=== PATIENT | female | born 1995 | race Caucasian/White ===

== ENCOUNTER 2020-10-24 18:04 | Emergency (ER) | payer MEDICAID, SELFPAY ==
[2020-10-24 18:24] VITALS: BP 118/75; PULSE 91; RESP 18; TEMP 36.9; O2SAT 98; BMI 36.6
--- NOTE | 2020-10-24 19:44 | W.ED.PREGNAN ---
HPI - General: Chief complaint: Vaginal Bleeding Stated complaint: 6 WKS PREG, BLEEDING Time Seen by Provider: 10/24/20 19:44 History of Present Illness: HPI Narrative: Patient is a 25-year-old female that is 6 weeks and comes to the ED with vaginal bleeding. This is patient's first . She says bleeding just started couple hours ago and it is very light. No clots no clots or tissue visible with bloody discharge. She says the bleeding has slowed down. Patient did have sexual intercourse within the last 24 hours. She had some mild cramping earlier this morning but that has since resolved. Denies any fever, chills, abdominal pain, chest pain, shortness of breath, bladder or bowel symptoms. She endorses having some nausea since she found out she was and it mostly occurs in the mornings. Associated symptoms: Reports nausea (Morning nausea ); Deny abdominal pain, dysuria, headache(s) or vomiting Review of Systems Const: Denies: fever(s), chills or fatigue Eyes: Denies: change in vision or eye discomfort ENMT: Denies: throat pain, odynophagia, nasal discharge or nasal congestion Card: Denies: chest pain, palpitations, edema, swelling of feet/ankles, dyspnea on exertion or orthopnea Resp: Denies: dyspnea, productive cough or non-productive cough GI: Reports: nausea (Morning nausea ); Denies: abdominal pain, vomiting, diarrhea, constipation or hematochezia : Reports: vaginal bleeding; Denies: flank pain, dysuria or hematuria Musc: Denies: neck pain, back pain or extremity swelling Skin/Breast: Denies: rash or new lesions Neuro: Denies: headache(s), numbness in extremities or weakness in extremities PFS ED PFSH: Social History Smoking and tobacco status: never smoked Second hand smoke exposure: No Smoking risk assessment/counseling performed?: No Physical Exam Const: COMMON NORMALS: no acute distress, patient oriented x3, healthy appearing and alert GENERAL APPEARANCE: cooperative and comfortable NUTRITIONAL APPEARANCE: overweight HENMT: COMMON NORMALS: normocephalic HEAD & SCALP: normocephalic MOUTH: Normal oral and palatal mucosa present THROAT: posterior oropharynx normal and uvula midline Eye: COMMON NORMALS: Equal, round and reactive pupils present PUPIL: Yes Equal, round and reactive pupils present Neck/C-Spine: COMMON NORMALS: supple GENERAL: Yes normal visual inspection Resp: COMMON NORMALS: normal respiratory effort, No retractions, No use of accessory muscles and clear to auscultation bilaterally EFFORT & INSPECTION: Yes able to speak in complete sentences, No tachypneic and No respiratory distress AUSCULTATION: clear to auscultation bilaterally Cardio: COMMON NORMALS: regular rate, regular rhythm, S1 normal heart sound present, S2 normal heart sound present, No gallops present (Cardio), No clicks present (Cardio), No murmurs present (Cardio) and Peripheral pulses 2+ throughout RATE: regular rate RHYTHM: regular rhythm HEART SOUNDS: S1 normal heart sound present and S2 normal heart sound present PERIPHERAL PULSES: Peripheral pulses 2+ throughout GI: COMMON NORMALS: Normal to inspection, nondistended, normoactive bowel sounds present, Soft to palpation, non-tender and no masses PALPATION: Yes Soft to palpation : COMMON NORMALS: Yes no CVA tenderness BLADDER/KIDNEY EXAM: Yes no CVA tenderness Back/Pelvis: COMMON NORMALS: no CVA tenderness Extremity: COMMON NORMALS: normal to inspection and no pedal edema Neuro: COMMON NORMALS: patient oriented x3 and moves all extremities SENSORIUM/ORIENTATION: Yes alert Skin: GENERAL SKIN EXAM: dry skin Course Vital Signs: Vital signs: Vital Signs Temperature 98.4 F 10/24/20 18:24 Pulse Rate 77 10/24/20 23:34 Respiratory Rate 18 10/24/20 23:34 Blood Pressure 119/74 10/24/20 23:34 Pulse Oximetry 99 10/24/20 23:34 MDM - OB/Uterine Contractions MDM Narrative: Medical decision making narrative: Patient is a 25-year-old female that is approximately 6 weeks comes to the ED with vaginal bleeding. She says bleeding has been light and has subsided. This is her first . Patient appears in no acute distress or pain and physical exam is unremarkable. CBC, CMP were unremarkable. UA shows some signs of a UTI. hCG quant 25,909. Rh type negative. Ultrasound showed a gestational sac with pole and heartbeat around 120-130 bpm. Cervix was closed. Patient has appointment with her OB doctor around mid October. She was discharged with a prescription for nitrofurantoin and told to follow-up in her next scheduled appointment with OB. Return to ED precautions given. Patient understood agree with plan. Lab Data: Attestation: I reviewed the patient's lab results. Labs: Lab Results 10/24/20 10/24/20 10/24/20 Range/Units 20:35 20:35 20:42 WBC 11.1 H (4.0-10.0) 10^3/ uL RBC 4.87 (4.1-5.3) 10^6/u L Hgb 12.6 (11.5-15.3) g/dL Hct 39.0 (37.0-47.0) % MCV 80.1 L (81-99) fL MCH 25.9 L (28.0-34.0) pg MCHC 32.3 (30.0-36.0) g/dL RDW 14.1 (12.1-15.1) % Plt Count 264 (130-400) 10^3/c mm MPV 10.4 (7.4-10.4) fL Neut % (Auto) 67.5 % Lymph % (Auto) 26.0 % [place] % (Auto) 5.1 % Eos % (Auto) 0.6 % Baso % (Auto) 0.4 % Neut # (Auto) 7.48 (1.8-7.7) 10^3/u L Lymph # (Auto) 2.9 (0.8-4.8) 10^3/u L [place] # (Auto) 0.6 (0.2-0.9) 10^3/u L Eos # (Auto) 0.1 (0.0-0.8) 10^3/u L Baso # (Auto) 0.0 (0.0-0.1) 10^3/u L Nucleated RBC % (a uto) 0 % Nucleated RBCs # 0.0 /100WBC Sodium 138 (136-145) mmol/L Potassium 3.9 (3.5-5.1) mmol/L Chloride 102 (98-107) mmol/L Carbon Dioxide 24 (22-29) mmol/L Anion Gap 15.9 (5-19) BUN 10 (6-20) mg/dL Creatinine 0.5 (0.5-0.9) mg/dL GFR Calculation Not Reportable Glucose 86 (65-115) mg/dL Calculated Osmolal ity Not Reportable Calcium 9.3 (8.5-10.5) mg/dL Total Bilirubin 0.2 (0.15-1.2) mg/dL AST 13 (0-32) U/L ALT 11 (0-33) U/L Alkaline Phosphata se 41 (35-105) IU/L Total Protein 6.1 L (6.6-8.7) g/dL Albumin 4.0 (3.5-5.2) g/dL Globulin 2.1 (1.3-4.6) g/dL Ser , [place] [address].00 mIU/mL Urine Color (Yellow) Urine Appearance (CLEAR) Urine pH (5-7) Ur Specific Gravit y (1.005-1.030) Urine Protein (Negative) Urine Glucose (UA) (Normal) Urine Ketones (Negative) Urine Blood (Negative) Urine Nitrate (Negative) Urine Bilirubin (Negative) Urine Urobilinogen (Negative) mg/dL Ur Leukocyte Tonie ase (Negative) Urine RBC (0-2) /hpf Urine WBC (0-5) /hpf Ur Squamous Epith Cells (0-5) /hpf Amorphous Sediment Urine Bacteria (NONE) /hpf Urine Mucus /hpf Blood Type A Negative Rho(D) Type Negative Antibody Screen Negative 10/24/20 Range/Units 21:03 WBC (4.0-10.0) 10^3/ uL RBC (4.1-5.3) 10^6/u L Hgb (11.5-15.3) g/dL Hct (37.0-47.0) % MCV (81-99) fL MCH (28.0-34.0) pg MCHC (30.0-36.0) g/dL RDW (12.1-15.1) % Plt Count (130-400) 10^3/c mm MPV (7.4-10.4) fL Neut % (Auto) % Lymph % (Auto) % [place] % (Auto) % Eos % (Auto) % Baso % (Auto) % Neut # (Auto) (1.8-7.7) 10^3/u L Lymph # (Auto) (0.8-4.8) 10^3/u L [place] # (Auto) (0.2-0.9) 10^3/u L Eos # (Auto) (0.0-0.8) 10^3/u L Baso # (Auto) (0.0-0.1) 10^3/u L Nucleated RBC % (a uto) % Nucleated RBCs # /100WBC Sodium (136-145) mmol/L Potassium (3.5-5.1) mmol/L Chloride (98-107) mmol/L Carbon Dioxide (22-29) mmol/L Anion Gap (5-19) BUN (6-20) mg/dL Creatinine (0.5-0.9) mg/dL GFR Calculation Glucose (65-115) mg/dL Calculated Osmolal ity Calcium (8.5-10.5) mg/dL Total Bilirubin (0.15-1.2) mg/dL AST (0-32) U/L ALT (0-33) U/L Alkaline Phosphata se (35-105) IU/L Total Protein (6.6-8.7) g/dL Albumin (3.5-5.2) g/dL Globulin (1.3-4.6) g/dL Ser , [place] i-Qnt mIU/mL Urine Color Yellow (Yellow) Urine Appearance Hazy A (CLEAR) Urine pH 5.0 (5-7) Ur Specific Gravit y 1.025 (1.005-1.030) Urine Protein 1+ H (Negative) Urine Glucose (UA) Norm (Normal) Urine Ketones 2+ H (Negative) Urine Blood 3+ H (Negative) Urine Nitrate Negative (Negative) Urine Bilirubin Neg (Negative) Urine Urobilinogen 1 H (Negative) mg/dL Ur Leukocyte Tonie ase Trace H (Negative) Urine RBC 0-4 H (0-2) /hpf Urine WBC 10-15 H (0-5) /hpf Ur Squamous Epith Cells 5-10 H (0-5) /hpf Amorphous Sediment Not Reportable Urine Bacteria 2+ H (NONE) /hpf Urine Mucus 2+ /hpf Blood Type Rho(D) Type Antibody Screen Imaging Data^: US OB: Attestation: I personally reviewed and interpreted this imaging study as follows: Radiologist's impression: OB ultrasound prelim report?gestational sac and pole seen in uterus. Heart rate around 120 to 130 bpm. Cervix closed. Discharge Plan Discharge Patient Disposition: Home Clinical Impression: Vaginal bleeding before 22 weeks gestation UTI (urinary tract infection) Qualifiers: Urinary tract infection type: site unspecified Hematuria presence: with hematuria Qualified Code(s): N39.0 - Urinary tract infection, site not specified Condition: Stable Prescriptions: New nitrofurantoin monohyd/m-cryst 100 mg capsule 100 mg PO BID 7 Days Qty: 14 RF: 0 No Action sertraline [Zoloft] 100 mg tablet 100 mg PO DAILY Qty: 30 RF: 2 1 tab PO DAILY RF: 0 multivitamin 1 tab PO DAILY RF: 0 Discharge Orders: Discharge Order (Routine); Ordered 10/24/20 Ordered By: Barney Vidal Referrals: Larry Mtz MD [Primary Care Provider] - Discharge Diet: Regular Discharge Activity: Increase activity as tolerated Patient Instructions: (ED), Urinary Tract Infection in Women (ED) Activity Restrictions/Additional Instructions: Follow-up with OB doctor at next appointment. Take medications as prescribed. Return to the ER or your medical provider if condition worsens. Please read and understand discharge instructions. If any questions, please ask. Coding Level of Care Code ED Airline Managerial Supervisor for Chg Fwd Exam Comprehensive
[2020-10-24 20:46] LABS: Basophils % 0.4 %; Eosinophils # 0.1 10^3/uL (0.0-0.8); Eosinophils % 0.6 %; Hemoglobin 12.6 g/dL (11.5-15.3); Lymphocytes # 2.9 10^3/uL (0.8-4.8); Mean Corpuscular HGB Conc 32.3 g/dL (30.0-36.0); Mean Corpuscular Hemoglobin 25.9 pg (28.0-34.0); Mean Corpuscular Volume 80.1 fL (81-99); Mean Platelet Volume 10.4 fL (7.4-10.4); Monocytes # 0.6 10^3/uL (0.2-0.9); Monocytes % 5.1 %; Neutrophils # 7.48 10^3/uL (1.8-7.7); Neutrophils % 67.5 %; Nucleated Red Blood Cells % 0 %; Platelet Count 264 10^3/cmm (130-400); Red Blood Count 4.87 10^6/uL (4.1-5.3); Red Cell Distribution Width 14.1 % (12.1-15.1); White Blood Count 11.1 10^3/uL (4.0-10.0)
[2020-10-24 21:04] VITALS: BP 117/74; PULSE 78; RESP 18; O2SAT 99
[2020-10-24 21:22] LABS: Alanine Aminotransferase 11 U/L (0-33); Alkaline Phosphatase 41 IU/L (35-105); Aspartate Amino Transferase 13 U/L (0-32); Blood Urea Nitrogen 10 mg/dL (6-20); Calcium 9.3 mg/dL (8.5-10.5); Carbon Dioxide 24 mmol/L (22-29); Chloride 102 mmol/L (98-107); Globulin 2.1 g/dL (1.3-4.6); Glucose 86 mg/dL (65-115); Sodium 138 mmol/L (136-145); Total Bilirubin 0.2 mg/dL (0.15-1.2)
[2020-10-24 21:26] LABS: Anion Gap 15.9 (5-19); Potassium 3.9 mmol/L (3.5-5.1); Total Protein 6.1 g/dL (6.6-8.7)
--- NOTE | 2020-10-24 21:28 | US_ITS ---
WS: [id number] EARLY OBSTETRICAL ULTRASOUND (<14 WEEKS). HISTORY: 6 weeks preg with bleeding COMPARISON: None available. Transabdominal and transvaginal imaging is performed. Technically this study is very limited. There i s an intrauterine gestational sac which appears low lying on the transabdominal imaging but the uteru s is slightly retroverted on transvaginal imaging. Cervix has not been well evaluated for blood produ cts. Gestational sac appears intact. There is a normal yolk sac. Heart rate is identified at 122 bpm. [place]-rump length of 0.4 cm corresponds to gestation of 6 weeks and 1 day. No fluid in the cul-de-sac. RIGHT ovary measures 2.1 x 3.6 x 2.5 cm. Normal vascularity. LEFT ovary measures 2.8 x 3.0 x 1.9 cm. Several small follicles in the ovary. The ovary is surrounded by small amount of fluid. Normal vascularity. US/US OB lmt with transvaginal IMPRESSION: 1. Single intrauterine gestation of 6 weeks 1 day with an EDC of 06/18/2021. 2. Limited evaluation of the gestation in the cervix. 3. Limited evaluation of each ovary.
[2020-10-24 21:35] LABS: Blood Urine 3+ (Negative); Glucose Urine UA Norm (Normal); Ketones Urine 2+ (Negative); Nitrate Urine Negative (Negative); Protein Urine 1+ (Negative); Specific Gravity, Urine 1.025 (1.005-1.030); Urine Appearance Hazy (CLEAR); Urine Color Yellow (Yellow)
[2020-10-24 21:36] LABS: Add Urine Culture? No; Bacteria Urine 2+ /hpf; Bilirubin Urine Neg (Negative); Leukocyte Esterase Urine Trace (Negative); Mucus Urine 2+ /hpf; RBC Urine 0-4 /hpf (0-2); Urobilinogen Urine 1 mg/dL (Negative)
[2020-10-24 22:27] VITALS: BP 106/57; PULSE 70; RESP 18; O2SAT 97
[2020-10-24 23:34] VITALS: BP 119/74; PULSE 77; RESP 18; O2SAT 99
== END 2020-10-24 23:36 | disposition home or self-care (01) ==
PROVIDERS: Emergency Provider Physician Assistant; PCP Family Medicine
DX: O20.9 Hemorrhage in early pregnancy, unspecified (principal); Z3A.01 Less than 8 weeks gestation of pregnancy; O23.41 Unspecified infection of urinary tract in pregnancy, first trimester
CPT/HCPCS: 12345; 76815; 76817; 80053; 81001; 84702; 85025; 86850; 86900; 99282; 99283

== ENCOUNTER 2020-11-09 07:40 | Emergency (ER) | payer MEDICAID, SELFPAY ==
[2020-11-09 07:43] VITALS: BP 131/72; PULSE 87; RESP 18; TEMP 36.3; O2SAT 100; BMI 36.0
--- NOTE | 2020-11-09 07:48 | W.ED.NAVMDI ---
HPI - Nausea/Vomiting/Diarrhea General: Chief complaint: Nausea/Vomiting/Diarrhea Stated complaint: 8 WKS PREG, UNABLE TO KEEP ANYTHING DOWN X4 DAYS Time Seen by Provider: 11/09/20 07:44 Source: patient Mode of arrival: ambulatory Limitations: no limitations History of Present Illness: HPI Narrative: 25-year-old female who is roughly 8 weeks with her first child. She states she has had nausea and vomiting throughout the but has had severe vomiting over the last 3 days. She states she has tried Phenergan with no improvement. She denies any pain and has no vaginal bleeding. Denies any worsening or improving factors. Associated nausea: Yes Associated symtoms: Reports nausea; Denies chest pain, dysuria or headache(s) Review of Systems Const: Denies: fever(s), chills, body aches or change in appetite Eyes: Denies: blurry vision or eye discomfort ENMT: Denies: throat pain or dental pain Card: Denies: chest pain Resp: Denies: dyspnea GI: Reports: nausea and vomiting; Denies: abdominal pain or diarrhea : Denies: dysuria Musc: Denies: neck pain or back pain Skin/Breast: Denies: rash Neuro: Denies: headache(s) Psych: Denies: depression [place]/Lymph: Denies: easy bruising All/Imm: Denies: urticaria PFSH ED PFSH: Social History Smoking and tobacco status: never smoked Second hand smoke exposure: No Smoking risk assessment/counseling performed?: No Physical Exam Const: COMMON NORMALS: no acute distress, patient oriented x3 and healthy appearing HENMT: COMMON NORMALS: normocephalic and atraumatic HEAD & SCALP: normocephalic and atraumatic Eye: COMMON NORMALS: Equal, round and reactive pupils present and EOMs intact bilaterally PUPIL: Yes Equal, round and reactive pupils present Neck/C-Spine: COMMON NORMALS: full ROM and supple Chest: COMMONS NORMALS: normal inspection of the chest and normal palpation of entire chest wall Resp: COMMON NORMALS: normal respiratory effort, No retractions, No use of accessory muscles and clear to auscultation bilaterally AUSCULTATION: clear to auscultation bilaterally Cardio: COMMON NORMALS: regular rate, regular rhythm and No murmurs present (Cardio) RATE: regular rate RHYTHM: regular rhythm GI: COMMON NORMALS: Normal to inspection, nondistended, normoactive bowel sounds present, Soft to palpation, non-tender and no masses PALPATION: Yes Soft to palpation Extremity: COMMON NORMALS: normal to inspection and full ROM Neuro: COMMON NORMALS: patient oriented x3, moves all extremities and no focal motor deficits Psych: COMMON NORMALS: mental status grossly normal, Normal thought process present and cooperative THOUGHT PROCESS: Normal thought process present Skin: COMMON NORMALS: no rashes or lesions noted and no wounds GENERAL SKIN EXAM: no rashes or lesions noted Course Vital Signs: Vital signs: Vital Signs Temperature 97.3 F L 11/09/20 07:43 Pulse Rate 87 11/09/20 07:43 Respiratory Rate 18 11/09/20 07:43 Blood Pressure 131/72 11/09/20 07:43 Pulse Oximetry 95 11/09/20 08:06 MDM - Nausea/Vomiting/Diarrhea MDM Narrative: Medical decision making narrative: Patient presents here with hyperemesis gravidarum and also has a urinary tract infection. She feels much improved after Reglan. Will prescribe her Reglan for home along with Keflex. Patient has no signs of sepsis and abdominal exam is benign. She is to follow-up with her OB and return if worsening. Lab Data: Labs: Lab Results 11/09/20 11/09/20 11/09/20 Range/Units 07:50 07:50 08:15 WBC 10.7 H (4.0-10.0) 10^3/ uL RBC 5.28 (4.1-5.3) 10^6/u L Hgb 13.6 (11.5-15.3) g/dL Hct 42.2 (37.0-47.0) % MCV 79.9 L (81-99) fL MCH 25.8 L (28.0-34.0) pg MCHC 32.2 (30.0-36.0) g/dL RDW 13.4 (12.1-15.1) % Plt Count 281 (130-400) 10^3/c mm MPV 10.5 H (7.4-10.4) fL Neut % (Auto) 79.5 % Lymph % (Auto) 14.7 % [place] % (Auto) 4.0 % Eos % (Auto) 1.0 % Baso % (Auto) 0.4 % Neut # (Auto) 8.51 H (1.8-7.7) 10^3/u L Lymph # (Auto) 1.6 (0.8-4.8) 10^3/u L [place] # (Auto) 0.4 (0.2-0.9) 10^3/u L Eos # (Auto) 0.1 (0.0-0.8) 10^3/u L Baso # (Auto) 0.0 (0.0-0.1) 10^3/u L Nucleated RBC % (a uto) 0 % Nucleated RBCs # 0.0 /100WBC Sodium 136 (136-145) mmol/L Potassium 3.7 (3.5-5.1) mmol/L Chloride 101 (98-107) mmol/L Carbon Dioxide 23 (22-29) mmol/L Anion Gap 15.7 (5-19) BUN 10 (6-20) mg/dL Creatinine 0.6 (0.5-0.9) mg/dL GFR Calculation 123.9 (90-130) mL/min Glucose 112 (65-115) mg/dL Calculated Osmolal ity 282 L (285-295) mOsm/k g Calcium 9.2 (8.5-10.5) mg/dL Total Bilirubin 0.4 (0.15-1.2) mg/dL AST 12 (0-32) U/L ALT 9 (0-33) U/L Alkaline Phosphata se 45 (35-105) IU/L Total Protein 6.7 (6.6-8.7) g/dL Albumin 4.0 (3.5-5.2) g/dL Globulin 2.7 (1.3-4.6) g/dL Lipase 24 (13-60) U/L Urine Color Yellow (Yellow) Urine Appearance Sl hazy (CLEAR) Urine pH 5.0 (5-7) Ur Specific Gravit y 1.030 (1.005-1.030) Urine Protein Neg (Negative) Urine Glucose (UA) Norm (Normal) Urine Ketones 2+ H (Negative) Urine Blood Neg (Negative) Urine Nitrate Negative (Negative) Urine Bilirubin 1+ H (Negative) Urine Urobilinogen 1 H (Negative) mg/dL Ur Leukocyte Tonie ase 2+ H (Negative) Urine RBC 0-4 H (0-2) /hpf Urine WBC 40-55 H (0-5) /hpf Ur Squamous Epith Cells 40-55 H (0-5) /hpf Amorphous Sediment Not Reportable Urine Bacteria 2+ H (NONE) /hpf Urine Mucus 3+ /hpf Discharge Plan Discharge Patient Disposition: Home Clinical Impression: Hyperemesis gravidarum, Acute cystitis Condition: Stable Prescriptions: New Reglan 10 mg tablet 10 mg PO Q6H PRN (Reason: nausea and vomiting) Qty: 20 RF: 0 Keflex 500 mg capsule 500 mg PO Q6H 7 Days Qty: 28 RF: 0 No Action sertraline [Zoloft] 100 mg tablet 100 mg PO DAILY Qty: 30 RF: 2 1 tab PO DAILY RF: 0 multivitamin 1 tab PO DAILY RF: 0 Discharge Orders: Discharge ED (Routine); Ordered 11/09/20 Ordered By: Vanessa Jackson Referrals: Larry Mtz MD [Primary Care Provider] - 1-3 days Discharge Diet: Advance as tolerated Discharge Activity: Resume usual activity Patient Instructions: Hyperemesis Gravidarum (ED) Coding Level of Care Code ED Loading Machine Operator Helper for Chg Fwd Exam Comprehensive
[2020-11-09 08:06] VITALS: O2SAT 95
[2020-11-09] MEDS: sodium chloride 0.9% 1,000 ML 999 ML IV ×2 (08:12→09:10)
[2020-11-09] MEDS: metoclopramide 5 mg/mL SDV 2 mL 10 MG IVP (08:12)
[2020-11-09] MEDS: diphenhydrAMINE 50 mg/mL SDV 1mL IVP (08:12)
[2020-11-09 08:15] LABS: Basophils % 0.4 %; Eosinophils # 0.1 10^3/uL (0.0-0.8); Hematocrit 42.2 % (37.0-47.0); Hemoglobin 13.6 g/dL (11.5-15.3); Lymphocytes # 1.6 10^3/uL (0.8-4.8); Lymphocytes % 14.7 %; Mean Corpuscular HGB Conc 32.2 g/dL (30.0-36.0); Mean Corpuscular Hemoglobin 25.8 pg (28.0-34.0); Mean Corpuscular Volume 79.9 fL (81-99); Mean Platelet Volume 10.5 fL (7.4-10.4); Monocytes # 0.4 10^3/uL (0.2-0.9); Neutrophils # 8.51 10^3/uL (1.8-7.7); Neutrophils % 79.5 %; Nucleated Red Blood Cells % 0 %; Platelet Count 281 10^3/cmm (130-400); Red Blood Count 5.28 10^6/uL (4.1-5.3); Red Cell Distribution Width 13.4 % (12.1-15.1); White Blood Count 10.7 10^3/uL (4.0-10.0)
[2020-11-09 08:27] LABS: Alanine Aminotransferase 9 U/L (0-33); Alkaline Phosphatase 45 IU/L (35-105); Anion Gap 15.7 (5-19); Aspartate Amino Transferase 12 U/L (0-32); Blood Urea Nitrogen 10 mg/dL (6-20); Calcium 9.2 mg/dL (8.5-10.5); Carbon Dioxide 23 mmol/L (22-29); Chloride 101 mmol/L (98-107); Globulin 2.7 g/dL (1.3-4.6); Glomerular Filtration Rate 123.9 mL/min (90-130); Glucose 112 mg/dL (65-115); Lipase 24 U/L (13-60); Osmolality Calculated 282 mOsm/kg (285-295); Potassium 3.7 mmol/L (3.5-5.1); Sodium 136 mmol/L (136-145); Total Bilirubin 0.4 mg/dL (0.15-1.2); Total Protein 6.7 g/dL (6.6-8.7)
[2020-11-09 08:40] LABS: Glucose Urine UA Norm (Normal); Ketones Urine 2+ (Negative); Protein Urine Neg (Negative); Urine Appearance SL Hazy (CLEAR); Urine Color Yellow (Yellow)
[2020-11-09 08:41] LABS: Add Urine Culture? No; Add Urine Microscopic? YES; Bacteria Urine 2+ /hpf; Bilirubin Urine 1+ (Negative); Blood Urine Neg (Negative); Leukocyte Esterase Urine 2+ (Negative); Mucus Urine 3+ /hpf; Nitrate Urine Negative (Negative); RBC Urine 0-4 /hpf (0-2); Squamous Epithelial Cell Urine 40-55 /hpf (0-5); Urobilinogen Urine 1 mg/dL (Negative); WBC Urine 40-55 /hpf (0-5)
[2020-11-09 09:11] VITALS: BP 116/74; PULSE 66; O2SAT 100
[2020-11-09 10:09] VITALS: BP 100/59; PULSE 68; O2SAT 95
== END 2020-11-09 10:10 | disposition home or self-care (01) ==
PROVIDERS: Emergency Provider Emergency Medicine; PCP Family Medicine
DX: O21.0 Mild hyperemesis gravidarum (principal); O23.11 Infections of bladder in pregnancy, first trimester; Z3A.08 8 weeks gestation of pregnancy
CPT/HCPCS: 12345; 80053; 81001; 83690; 85025; 96361; 96374; 96375; 99283; J1200; J2765; J7030

== ENCOUNTER 2021-01-07 08:44 | Emergency (ER) | payer MEDICAID, SELFPAY ==
--- NOTE | 2021-01-07 08:53 | W.ED.ABDPA2 ---
HPI - Abdominal Pain General: Chief Complaint: Nausea/Vomiting/Diarrhea Stated Complaint: N/V 17 weeks preg Time Seen by Provider: 01/07/21 08:48 Source: patient Mode of arrival: ambulatory Limitations: no limitations History of Present Illness: HPI narrative: 25-year-old female comes in with nausea and vomiting for the last 48 hours. Patient reports that she is 17 weeks and has had worsening symptoms over this time. Patient reports of vomiting clear fluid. Patient appears mildly unwell. Patient appears in no pain. Patient denies any vaginal discharge or abnormal bleeding. Associated Symptoms: Reports nausea and vomiting Related Data: Date of Last Menstrual Period: 09/13/20 Review of Systems General: Reports: 10 or more systems reviewed and unremarkable except in HPI and below GI: Reports: nausea and vomiting PFSH ED PFSH: Social History Smoking and tobacco status: never smoked Second hand smoke exposure: No Smoking risk assessment/counseling performed?: No Female Reproductive History: Date of last menstrual period: 09/13/20 Physical Exam Const: COMMON NORMALS: no acute distress and patient oriented x3 GENERAL APPEARANCE: cooperative HENMT: COMMON NORMALS: normocephalic and Normal external nose present HEAD & SCALP: normal to inspection and normocephalic NOSE: Normal external nose present MOUTH: Normal oral and palatal mucosa present Eye: GENERAL EYE: appearance normal, both eyes and all related structures Neck/C-Spine: COMMON NORMALS: full ROM Lymph: LYMPHATIC: no lymphadenopathy noted Chest: COMMONS NORMALS: normal inspection of the chest Resp: COMMON NORMALS: normal respiratory effort EFFORT & INSPECTION: Yes able to speak in complete sentences Cardio: COMMON NORMALS: regular rate and regular rhythm RATE: regular rate RHYTHM: regular rhythm GI: COMMON NORMALS: Soft to palpation and non-tender PALPATION: Yes Soft to palpation : COMMON NORMALS: Yes no CVA tenderness BLADDER/KIDNEY EXAM: Yes no CVA tenderness Back/Pelvis: COMMON NORMALS: no CVA tenderness and thoracic and lumbar spine normal to inspection Extremity: COMMON NORMALS: normal to inspection Neuro: COMMON NORMALS: patient oriented x3 and moves all extremities Psych: COMMON NORMALS: mental status grossly normal and cooperative Skin: COMMON NORMALS: no rashes or lesions noted GENERAL SKIN EXAM: no rashes or lesions noted Course Vital Signs: Vital signs: Vital Signs Temperature 97.3 F L 02/07/21 08:56 Pulse Rate 87 01/07/21 10:43 Respiratory Rate 18 01/07/21 10:43 Blood Pressure 111/80 01/07/21 10:43 Pulse Oximetry 98 01/07/21 10:43 MDM - Abdominal Pain MDM Narrative: Medical decision making narrative: Patient comes in today with complaints of nausea and vomiting for the last 48 hours worsening her usual for her state. On exam patient appears well. Patient appears no acute distress. [place] is moist. Skin is warm and dry vital signs are normal. Differential diagnosis includes dehydration, hyperemesis gravidarum, UTI. Laboratory values were unremarkable. Urinalysis was unremarkable. Patient was given 1 L of IV fluids and some Zofran and a p.o. challenge with good results. We will continue patient on Zofran as needed for breakthrough nausea and vomiting. Patient will continue with Reglan. Follow-up with primary care/NATURALIZATION EXAMINER for further treatment and follow-up. Patient reported understanding. Lab Data: Labs: Lab Results 01/07/21 01/07/21 01/07/21 Range/Units 09:20 09:20 09:20 WBC 10.3 H (4.0-10.0) 10^3/ uL RBC 4.94 (4.1-5.3) 10^6/u L Hgb 13.0 (11.5-15.3) g/dL Hct 39.5 (37.0-47.0) % MCV 80.0 L (81-99) fL MCH 26.3 L (28.0-34.0) pg MCHC 32.9 (30.0-36.0) g/dL RDW 13.6 (12.1-15.1) % Plt Count 259 (130-400) 10^3/c mm MPV 10.9 H (7.4-10.4) fL Neut % (Auto) 73.2 % Lymph % (Auto) 21.5 % [place] % (Auto) 4.2 % Eos % (Auto) 0.3 % Baso % (Auto) 0.4 % Neut # (Auto) 7.51 (1.8-7.7) 10^3/u L Lymph # (Auto) 2.2 (0.8-4.8) 10^3/u L [place] # (Auto) 0.4 (0.2-0.9) 10^3/u L Eos # (Auto) 0.0 (0.0-0.8) 10^3/u L Baso # (Auto) 0.0 (0.0-0.1) 10^3/u L Nucleated RBC % (a uto) 0 % Nucleated RBCs # 0.0 /100WBC Sodium 136 (136-145) mmol/L Potassium 3.8 (3.5-5.1) mmol/L Chloride 103 (98-107) mmol/L Carbon Dioxide 21 L (22-29) mmol/L Anion Gap 15.8 (5-19) BUN 7 (6-20) mg/dL Creatinine 0.4 L (0.5-0.9) mg/dL GFR Calculation 197.8 H (90-130) mL/min Glucose 86 (65-115) mg/dL Calculated Osmolal ity 279 L (285-295) mOsm/k g Calcium 9.2 (8.5-10.5) mg/dL Total Bilirubin 0.5 (0.15-1.2) mg/dL AST 11 (0-32) U/L ALT 15 (0-33) U/L Alkaline Phosphata se 54 (35-105) IU/L Total Protein 6.5 L (6.6-8.7) g/dL Albumin 4.0 (3.5-5.2) g/dL Globulin 2.5 (1.3-4.6) g/dL Lipase 22 (13-60) U/L Urine Color Dark yellow (Yellow) Urine Appearance Clear (CLEAR) Urine pH 5 (5-7) Ur Specific Gravit y 1.030 (1.005-1.030) Urine Protein Neg (Negative) Urine Glucose (UA) Norm (Normal) Urine Ketones Negative (Negative) Urine Blood Neg (Negative) Urine Nitrate Negative (Negative) Urine Bilirubin 1+ H (Negative) Urine Urobilinogen 4 H (Negative) mg/dL Ur Leukocyte Tonie ase Trace H (Negative) Urine RBC None (0-2) /hpf Urine WBC 5-10 H (0-5) /hpf Ur Squamous Epith Cells 5-10 H (0-5) /hpf Amorphous Sediment Not Reportable Urine Bacteria Trace (NONE) /hpf Urine Mucus 1+ /hpf Discharge Plan Discharge Patient Disposition: Home Clinical Impression: Hyperemesis arising during Condition: Stable Prescriptions: New ondansetron 4 mg tablet,disintegrating 4 mg PO Q8H PRN (Reason: nausea and vomiting) Qty: 14 RF: 0 No Action sertraline [Zoloft] 100 mg tablet 100 mg PO DAILY Qty: 30 RF: 2 1 tab PO DAILY RF: 0 multivitamin 1 tab PO DAILY RF: 0 metoclopramide HCl [Reglan] 10 mg tablet 10 mg PO Q6H PRN (Reason: nausea and vomiting) Qty: 20 RF: 0 Discharge Orders: Discharge ED (Routine); Ordered 01/07/21 Ordered By: Leo Monroy Referrals: Larry Mtz MD [Primary Care Provider] - Discharge Diet: Advance as tolerated Discharge Activity: Resume usual activity Patient Instructions: Hyperemesis Gravidarum (ED) Activity Restrictions/Additional Instructions: Eat small frequent meals. Drink sips of water frequently. Healthy diet and activity. Follow-up with primary care for further treatment. Return to the emergency department for new concerns. Stand Alone Forms: Work/School Release Coding Level of Care Code ED Lead Network Architect for Chg Fwd Exam Comprehensive
[2021-01-07 08:56] VITALS: BP 119/78; PULSE 84; RESP 16; TEMP 36.3; O2SAT 98; BMI 35.7
[2021-01-07 08:59] VITALS: BP 111/66; PULSE 75; RESP 16; O2SAT 100
[2021-01-07] MEDS: ondansetron 2 mg/ML SDV 2 mL 4 MG IVP (09:17)
[2021-01-07] MEDS: sodium chloride 0.9% 1,000 ML 999 ML IV (09:17)
[2021-01-07 09:43] LABS: Basophils % 0.4 %; Eosinophils % 0.3 %; Hematocrit 39.5 % (37.0-47.0); Lymphocytes # 2.2 10^3/uL (0.8-4.8); Lymphocytes % 21.5 %; Mean Corpuscular HGB Conc 32.9 g/dL (30.0-36.0); Mean Corpuscular Hemoglobin 26.3 pg (28.0-34.0); Mean Platelet Volume 10.9 fL (7.4-10.4); Monocytes # 0.4 10^3/uL (0.2-0.9); Monocytes % 4.2 %; Neutrophils # 7.51 10^3/uL (1.8-7.7); Neutrophils % 73.2 %; Nucleated Red Blood Cells % 0 %; Platelet Count 259 10^3/cmm (130-400); Red Blood Count 4.94 10^6/uL (4.1-5.3); Red Cell Distribution Width 13.6 % (12.1-15.1); White Blood Count 10.3 10^3/uL (4.0-10.0)
[2021-01-07 09:52] LABS: Bilirubin Urine 1+ (Negative); Blood Urine Neg (Negative); Glucose Urine UA Norm (Normal); Ketones Urine Negative (Negative); Leukocyte Esterase Urine Trace (Negative); Nitrate Urine Negative (Negative); Protein Urine Neg (Negative); Urine Appearance Clear (CLEAR); Urine Color Dark Yellow (Yellow); Urobilinogen Urine 4 mg/dL (Negative); pH Urine 5 (5-7)
[2021-01-07 09:53] LABS: Add Urine Culture? No; Add Urine Microscopic? YES; Bacteria Urine TRACE /hpf; Mucus Urine 1+ /hpf
[2021-01-07 10:03] LABS: Alanine Aminotransferase 15 U/L (0-33); Alkaline Phosphatase 54 IU/L (35-105); Anion Gap 15.8 (5-19); Aspartate Amino Transferase 11 U/L (0-32); Blood Urea Nitrogen 7 mg/dL (6-20); Calcium 9.2 mg/dL (8.5-10.5); Carbon Dioxide 21 mmol/L (22-29); Chloride 103 mmol/L (98-107); Globulin 2.5 g/dL (1.3-4.6); Glomerular Filtration Rate 197.8 mL/min (90-130); Glucose 86 mg/dL (65-115); Lipase 22 U/L (13-60); Osmolality Calculated 279 mOsm/kg (285-295); Potassium 3.8 mmol/L (3.5-5.1); Sodium 136 mmol/L (136-145); Total Bilirubin 0.5 mg/dL (0.15-1.2); Total Protein 6.5 g/dL (6.6-8.7)
[2021-01-07 10:43] VITALS: BP 111/80; PULSE 87; RESP 18; O2SAT 98
== END 2021-01-07 10:44 | disposition home or self-care (01) ==
PROVIDERS: Emergency Provider Nurse Practitioner Family; PCP Family Medicine
DX: O21.0 Mild hyperemesis gravidarum (principal); Z3A.17 17 weeks gestation of pregnancy
CPT/HCPCS: 12345; 80053; 81001; 83690; 85025; 96361; 96374; 99282; 99283; J2405; J7030

== ENCOUNTER 2021-03-29 19:24 | Emergency (ER) | payer MEDICAID, SELFPAY ==
[2021-03-29 20:02] VITALS: BP 118/79; PULSE 102; RESP 17; TEMP 37; O2SAT 96; BMI 34.1
[2021-03-30 00:01] LABS: Add Urine Microscopic? YES; Bilirubin Urine Neg (Negative); Blood Urine Neg (Negative); Glucose Urine UA Norm (Normal); Ketones Urine Negative (Negative); Leukocyte Esterase Urine 2+ (Negative); Nitrate Urine Negative (Negative); Protein Urine Neg (Negative); Specific Gravity, Urine 1.005 (1.005-1.030); Urine Appearance Clear (CLEAR); Urine Color Yellow (Yellow); Urobilinogen Urine Norm (Negative); pH Urine 6.5 (5-7)
[2021-03-30 00:02] LABS: Bacteria Urine 2+ /hpf; RBC Urine 0-4 /hpf (0-2); WBC Urine 25-40 /hpf (0-5)
[2021-03-30 00:04] VITALS: BP 136/82; PULSE 107; RESP 18; O2SAT 97
[2021-03-30] MEDS: sodium chloride 0.9% 1,000 ML 999 ML IV (00:37)
[2021-03-30 00:39] VITALS: BP 134/94; PULSE 92; RESP 18; O2SAT 98
[2021-03-30 00:39] LABS: Basophils % 0.1 %; Eosinophils % 0.1 %; Hemoglobin 10.6 g/dL (11.5-15.3); Lymphocytes # 1.7 10^3/uL (0.8-4.8); Lymphocytes % 20.8 %; Mean Corpuscular HGB Conc 32.1 g/dL (30.0-36.0); Mean Corpuscular Hemoglobin 26.1 pg (28.0-34.0); Mean Corpuscular Volume 81.3 fL (81-99); Mean Platelet Volume 10.8 fL (7.4-10.4); Monocytes # 0.6 10^3/uL (0.2-0.9); Monocytes % 7.4 %; Neutrophils # 5.88 10^3/uL (1.8-7.7); Neutrophils % 71.1 %; Nucleated Red Blood Cells % 0 %; Platelet Count 191 10^3/cmm (130-400); Red Blood Count 4.06 10^6/uL (4.1-5.3); Red Cell Distribution Width 13.7 % (12.1-15.1); White Blood Count 8.3 10^3/uL (4.0-10.0)
[2021-03-30] MEDS: cefTRIAXone 1,000 MG in sodium chloride 0.9% (plus) 50 ML 100 MG IV (00:39)
[2021-03-30 01:12] LABS: Alanine Aminotransferase 8 U/L (0-33); Albumin Level 3.3 g/dL (3.5-5.2); Alkaline Phosphatase 64 IU/L (35-105); Anion Gap 12.5 (5-19); Aspartate Amino Transferase 11 U/L (0-32); Blood Urea Nitrogen 6 mg/dL (6-20); Calcium 7.9 mg/dL (8.5-10.5); Carbon Dioxide 23 mmol/L (22-29); Chloride 103 mmol/L (98-107); Globulin 2.7 g/dL (1.3-4.6); Glomerular Filtration Rate 152.9 mL/min (90-130); Glucose 92 mg/dL (65-115); Lipase 16 U/L (13-60); Osmolality Calculated 277 mOsm/kg (285-295); Potassium 3.5 mmol/L (3.5-5.1); Sodium 135 mmol/L (136-145); Total Bilirubin 0.4 mg/dL (0.15-1.2)
[2021-03-30 02:45] VITALS: BP 143/96; PULSE 96; RESP 18; O2SAT 98
--- NOTE | 2021-03-30 07:05 | W.ED.CHESTPA ---
HPI - Chest Pain General: Chief Complaint: Chest Pain Stated Complaint: cp/29 wks preg/already saw OB Time Seen by Provider: 03/30/21 00:07 Source: patient Mode of arrival: ambulatory Limitations: no limitations History of Present Illness: HPI narrative: 25-year-old female, currently 29 weeks , has had intermittent sharp stabbing sternal chest pains over the past week. She has been having more difficulty with acid reflux and indigestion during this time. She is not currently taking any daily antacid. No shortness of breath. No headache or fever. Good movement. Urinary frequency, but no dysuria. has been uncomplicated up to this point. MD complaint: chest pain, chest heaviness and chest discomfort Onset (ago): week(s) Associated symptoms: Reports nausea; Deny abdominal pain, dyspnea, fever(s), palpitations or vomiting Review of Systems General: Reports: 10 or more systems reviewed and unremarkable except in HPI and below Const: Denies: fever(s), chills, body aches, change in appetite or fatigue Eyes: Denies: change in vision or blurry vision ENMT: Denies: odynophagia or hoarseness Card: Reports: chest pain; Denies: palpitations, irregular heart rhythm, edema, swelling of feet/ankles, lightheadedness, dyspnea on exertion, orthopnea or leg pain with exertion Resp: Denies: dyspnea, productive cough, non-productive cough or wheezing GI: Reports: nausea and heartburn; Denies: abdominal pain, vomiting, hematemesis, constipation, bloating or GI cramping : Reports: urinary frequency; Denies: difficulty voiding or dysuria Musc: Denies: neck pain, back pain or extremity pain Skin/Breast: Denies: rash, pruritus or erythema Neuro: Denies: headache(s), numbness in extremities or weakness in extremities Endo: Denies: polyuria or polydipsia Darrick/Lymph: Denies: easy bruising or easy bleeding All/Imm: Denies: urticaria or throat swelling PFSH ED PFSH: Social History Smoking and tobacco status: never smoked Second hand smoke exposure: No Smoking risk assessment/counseling performed?: No Female Reproductive History: Date of last menstrual period: 09/13/20 Physical Exam Const: COMMON NORMALS: no acute distress, average body habitus and patient oriented x3 GENERAL APPEARANCE: cooperative and comfortable; not in distress, not anxious and not ill appearing HENMT: COMMON NORMALS: normocephalic and atraumatic HEAD & SCALP: normocephalic and atraumatic Resp: COMMON NORMALS: normal respiratory effort EFFORT & INSPECTION: Yes able to speak in complete sentences, No tachypneic and No respiratory distress Cardio: COMMON NORMALS: regular rate, regular rhythm and S2 normal heart sound present RATE: regular rate RHYTHM: regular rhythm HEART SOUNDS: S2 normal heart sound present GI: COMMON NORMALS: Soft to palpation PALPATION: Yes Soft to palpation, No Firmness to palpation present (GI), No Tenderness to palpation present (GI), No Guarding due to palpation present (GI), No Ascites present and Yes Other GI palpation findings present (Gravid) : COMMON NORMALS: Yes no CVA tenderness BLADDER/KIDNEY EXAM: Yes no CVA tenderness Back/Pelvis: COMMON NORMALS: no CVA tenderness Neuro: COMMON NORMALS: patient oriented x3 Skin: COMMON NORMALS: no rashes or lesions noted, no wounds and turgor normal GENERAL SKIN EXAM: no rashes or lesions noted and turgor normal Course Vital Signs: Vital signs: Vital Signs Temperature 98.6 F 03/29/21 20:02 Pulse Rate 96 03/30/21 02:45 Respiratory Rate 18 03/30/21 02:45 Blood Pressure 143/96 03/30/21 02:45 Pulse Oximetry 98 03/30/21 02:45 MDM - Chest Pain MDM Narrative: Medical decision making narrative: 25-year-old female, 29 weeks , with intermittent sharp chest pains over the past week. Typically associated with indigestion and acid reflux. No shortness of breath or dizziness. Vital signs stable, well-appearing on exam. heart tones 148-150 CBC and chemistry are unremarkable. Urinalysis suggest acute urinary tract infection, will send for culture. Rocephin 1 g IV, IV fluid bolus. Follow-up with her OB in the next 3 days, start OTC Pepcid. 7-day course of Keflex 500 mg twice daily. Instructed to return immediately to the ER if you develop fever, abdominal pain, vomiting, or worsening chest pain. Medical Records: Attestation: I reviewed the patient's medical records. Lab Data: Attestation: I reviewed the patient's lab results. Labs: Lab Results 03/29/21 03/30/21 03/30/21 Range/Units 21:17 00:30 00:30 WBC 8.3 (4.0-10.0) 10^3/ uL RBC 4.06 L (4.1-5.3) 10^6/u L Hgb 10.6 L (11.5-15.3) g/dL Hct 33.0 L (37.0-47.0) % MCV 81.3 (81-99) fL MCH 26.1 L (28.0-34.0) pg MCHC 32.1 (30.0-36.0) g/dL RDW 13.7 (12.1-15.1) % Plt Count 191 (130-400) 10^3/c mm MPV 10.8 H (7.4-10.4) fL Neut % (Auto) 71.1 % Lymph % (Auto) 20.8 % [place] % (Auto) 7.4 % Eos % (Auto) 0.1 % Baso % (Auto) 0.1 % Neut # (Auto) 5.88 (1.8-7.7) 10^3/u L Lymph # (Auto) 1.7 (0.8-4.8) 10^3/u L [place] # (Auto) 0.6 (0.2-0.9) 10^3/u L Eos # (Auto) 0.0 (0.0-0.8) 10^3/u L Baso # (Auto) 0.0 (0.0-0.1) 10^3/u L Nucleated RBC % (a uto) 0 % Nucleated RBCs # 0.0 /100WBC Sodium 135 L (136-145) mmol/L Potassium 3.5 (3.5-5.1) mmol/L Chloride 103 (98-107) mmol/L Carbon Dioxide 23 (22-29) mmol/L Anion Gap 12.5 (5-19) BUN 6 (6-20) mg/dL Creatinine 0.5 (0.5-0.9) mg/dL GFR Calculation 152.9 H (90-130) mL/min Glucose 92 (65-115) mg/dL Calculated Osmolal ity 277 L (285-295) mOsm/k g Calcium 7.9 L (8.5-10.5) mg/dL Total Bilirubin 0.4 (0.15-1.2) mg/dL AST 11 (0-32) U/L ALT 8 (0-33) U/L Alkaline Phosphata se 64 (35-105) IU/L Total Protein 6.0 L (6.6-8.7) g/dL Albumin 3.3 L (3.5-5.2) g/dL Globulin 2.7 (1.3-4.6) g/dL Lipase 16 (13-60) U/L Urine Color Yellow (Yellow) Urine Appearance Clear (CLEAR) Urine pH 6.5 (5-7) Ur Specific Gravit y 1.005 (1.005-1.030) Urine Protein Neg (Negative) Urine Glucose (UA) Norm (Normal) Urine Ketones Negative (Negative) Urine Blood Neg (Negative) Urine Nitrate Negative (Negative) Urine Bilirubin Neg (Negative) Urine Urobilinogen Norm (Negative) mg/dL Ur Leukocyte Tonie ase 2+ H (Negative) Urine RBC 0-4 H (0-2) /hpf Urine WBC 25-40 H (0-5) /hpf Ur Squamous Epith Cells 10-15 H (0-5) /hpf Amorphous Sediment Not Reportable Urine Bacteria 2+ H (NONE) /hpf Discharge Plan Discharge Patient Disposition: Home Clinical Impression: Chronic GERD UTI (urinary tract infection) during Qualifiers: Trimester: third trimester Qualified Code(s): O23.43 - Unspecified infection of urinary tract in , third trimester Chest pain Qualifiers: Chest pain type: unspecified Qualified Code(s): R07.9 - Chest pain, unspecified Condition: Stable Prescriptions: New cephalexin 500 mg capsule 500 mg PO BID 7 Days Qty: 14 RF: 0 No Action sertraline [Zoloft] 100 mg tablet 100 mg PO DAILY Qty: 30 RF: 2 1 tab PO DAILY RF: 0 multivitamin 1 tab PO DAILY RF: 0 ondansetron 4 mg tablet,disintegrating 4 mg PO Q8H PRN (Reason: nausea and vomiting) Qty: 14 RF: 0 metoclopramide HCl [Reglan] 10 mg tablet 10 mg PO Q6H PRN (Reason: nausea and vomiting) Qty: 20 RF: 0 Discharge Orders: Discharge ED (Routine); Ordered 03/30/21 Ordered By: Naomi David Referrals: Larry Mtz MD [Primary Care Provider] - Discharge Diet: Advance as tolerated Discharge Activity: Resume usual activity Patient Instructions: Urinary Tract Infection - Women Activity Restrictions/Additional Instructions: Drink plenty of water, rest, make sure to finish all of the antibiotics. [facility] tomorrow to schedule follow-up appointment. Return immediately to the ER if you develop fever, worsening chest pain or abdominal pain, difficulty breathing, or any other concerning changes. You can start taking [id number] Pepcid/famotidine twice daily for GERD. Stand Alone Forms: Work/School Release Coding Level of Care Code ED Heel Stiffener for Obey Carvajal
== END 2021-03-30 02:48 | disposition home or self-care (01) ==
PROVIDERS: Nurse Practitioner Family; Emergency Provider Family Medicine; PCP Family Medicine
DX: O26.893 Other specified pregnancy related conditions, third trimester (principal); K21.9 Gastro-esophageal reflux disease without esophagitis; O23.43 Unspecified infection of urinary tract in pregnancy, third trimester; Z3A.29 29 weeks gestation of pregnancy
CPT/HCPCS: 80053; 81001; 81003; 83690; 85025; 87086; 96365; 99283; J0696; J7030

== ENCOUNTER 2021-04-25 19:02 | Outpatient (CLI) | payer MEDICAID, SELFPAY ==
[2021-04-25 19:17] VITALS: BP 128/71; PULSE 100
[2021-04-25] MEDS: ondansetron 4 MG Tablet PO (20:34)
[2021-04-25 20:40] LABS: Urine Appearance SL Hazy (CLEAR); Urine Color Yellow (Yellow); pH Urine 5 (5-7)
[2021-04-25 20:41] LABS: Add Urine Culture? No; Add Urine Microscopic? YES; Bacteria Urine 2+ /hpf; Bilirubin Urine Neg (Negative); Blood Urine Neg (Negative); Glucose Urine UA Norm (Normal); Ketones Urine 2+ (Negative); Leukocyte Esterase Urine 2+ (Negative); Nitrate Urine Negative (Negative); Protein Urine Neg (Negative); RBC Urine 0-4 /hpf (0-2); Squamous Epithelial Cell Urine 15-25 /hpf (0-5); Urobilinogen Urine 4 mg/dL (Negative); WBC Urine 25-40 /hpf (0-5)
[2021-04-25 20:51] VITALS: BMI 32.8
[2021-04-25 22:03] VITALS: BP 119/89; PULSE 74
[2021-04-25 22:25] VITALS: TEMP 36.3
[2021-04-25 22:26] VITALS: BP 126/66; PULSE 93
== END 2021-04-25 23:12 | disposition home or self-care (01) ==
LOC: OPOB 19:05 → OBGYN 19:07
PROVIDERS: PCP Family Medicine; Visit Provider Family Medicine
DX: O21.9 Vomiting of pregnancy, unspecified (principal); Z3A.00 Weeks of gestation of pregnancy not specified
CPT/HCPCS: 59025; 81001; 99211; Q0162

== ENCOUNTER 2021-05-25 22:55 | Inpatient (IN) | payer MEDICAID, SELFPAY ==
[2021-05-25 20:00] VITALS: BMI 34.0
[2021-05-25 20:08] VITALS: BP 126/85; PULSE 74; TEMP 36.2
[2021-05-25 21:34] VITALS: BP 127/69; PULSE 59
[2021-05-25] MEDS: dextrose 5%-lactated ringers 1,000 ML 125 ML IV (23:39)
[2021-05-25] MEDS: ampicillin 2,000 MG in sodium chloride 0.9% (plus) 50 ML 100 MG IV (23:40)
[2021-05-26] VITALS (77 sets, daily range): BP systolic 93–159; BP diastolic 52–101; PULSE 53–166; TEMP 36.6–37.6; O2SAT 91–100
[2021-05-26 00:04] LABS: Basophils # 0.1 10^3/uL (0.0-0.1); Basophils % 0.4 %; Eosinophils % 0.3 %; Hematocrit 33.5 % (37.0-47.0); Hemoglobin 10.6 g/dL (11.5-15.3); Lymphocytes # 2.4 10^3/uL (0.8-4.8); Lymphocytes % 20.7 %; Mean Corpuscular HGB Conc 31.6 g/dL (30.0-36.0); Mean Corpuscular Hemoglobin 24.2 pg (28.0-34.0); Mean Corpuscular Volume 76.5 fL (81-99); Mean Platelet Volume 10.8 fL (7.4-10.4); Monocytes # 0.6 10^3/uL (0.2-0.9); Monocytes % 4.8 %; Neutrophils # 8.46 10^3/uL (1.8-7.7); Neutrophils % 73.3 %; Nucleated Red Blood Cells % 0 %; Platelet Count 284 10^3/cmm (130-400); Red Blood Count 4.38 10^6/uL (4.1-5.3); White Blood Count 11.6 10^3/uL (4.0-10.0)
[2021-05-26] MEDS: lactated ringers 1,000 ML 999 ML IV (00:49)
--- NOTE | 2021-05-26 01:49 | P.ANESASSM_ITS ---
Pre-Anesthetic Assessment Pre-Anesthetic Assessment: Height/Weight: Height 1.63 m Weight 89.811 kg Temp Pulse BP 97.2 F L 59 L 127/69 05/25/21 20:08 05/25/21 21:34 05/25/21 21:34 Preop Diagnosis: labor pain Proposed Procedure: epidural Was Beta Barbi taken within 24 hours: N/A Was Clonidine taken within 24 hours: N/A Social: Social History: No alcohol and No tobacco Exam: Pre-Anes Outpt Exam: alert, oriented x 3, clear to auscultation bilaterally and regular rate & rhythm Airway: Submandibular: WNL Cervical ROM: WNL MP: 2 Dentition: Full Pulmonary: Pulmonary: None reported CV/HEM: CV/HEM: None reported : : UTI (history) Hepatic: Hepatic: None reported GI: GI: GERD (controlled) Metabolic: Metabolic: None reported Musc/skel: Musc/skel: None reported Neuropsych: Neuropsych: Anxiety and Depression Comments: ptsd Anesthetic Plan: ASA status: 2 Anesthesia: Eval. for regional block and Regional (specify below) Risk of > 500 ml blood loss (7ml/kg in children): No Meds/Allergies Current Medications: Current Medications Generic Name Dose Route Start Last Admin Trade Name Freq PRN Reason Stop Dose Admin Dextrose/Lactated Ringer's 1,000 mls @ 125 m ls/hr 05/25/21 22:52 05/25/21 23:39 Dextrose 5%-Lact ated Ringers IV 125 mls/hr .Q8H PRN Administration labor Lactated Ringer's 1,000 mls @ 999 m ls/hr 05/26/21 00:30 05/26/21 00:49 Lactated Ringers IV 999 mls/hr .Q1H1M PRN Administration See label comment s PFSH Anesthesia PFSH: Social History Smoking and tobacco status: never smoked Second hand smoke exposure: No Smoking risk assessment/counseling performed?: No Female Reproductive History: Date of last menstrual period: 09/13/20 : 1 Data Anesthesia CBC & Chem 7: 05/25/21 23:20 Other Labs: Laboratory Results - last 48 hr 05/25/21 23:20 WBC 11.6 H RBC 4.38 Hgb 10.6 L Hct 33.5 L MCV 76.5 L MCH 24.2 L MCHC 31.6 RDW 14.0 Plt Count 284 MPV 10.8 H Neut % (Auto) 73.3 Lymph % (Auto) 20.7 [place] % (Auto) 4.8 Eos % (Auto) 0.3 Baso % (Auto) 0.4 Neut # (Auto) 8.46 H Lymph # (Auto) 2.4 [place] # (Auto) 0.6 Eos # (Auto) 0.0 Baso # (Auto) 0.1 Nucleated RBC % (auto) 0 Nucleated RBCs # 0.0 Cardiac Studies: No Data to Display
--- NOTE | 2021-05-26 02:16 | P.ANES_ITS ---
Anesthesia Procedures Procedure/Date: 05/26/21 epidural Procedure Narrative: epidural complete, bolus given, epidural pump initiated with SLITTER AND CUTTER OPERATOR education given, vitals taken during procedure using OBIX system and satisfactory throughout, patient admits to decrease pain, report of procedure to OB RN Epidural: Time Out Performed: Yes Consents Signed: Procedure Consent Consent: requested by attending/covering physician, from patient, risks and benefits reviewed and patient agrees to proceed Lumbar Level: L3-L4 Epidural position: sitting Epidural procedure: sterile prep of area, 1% lidocaine to numb the area (3 mL), 18 g needle, negative for paresthesia passed, neg for paresthesia, test dose given, 1.5% xylocaine 1:200k epi (5 mL), 0.2% Ropivacaine bolus ml (5 mL), placed PCEA, no systemic response, sterile dressing applied, L.U.D. no apparent complications and 0.2% Ropiavacaine @ mls/hr (13 mL/hr)
[2021-05-26] MEDS: ampicillin 1,000 MG in sodium chloride 0.9% (plus) 50 ML 100 MG IV ×3 (02:27→10:31)
[2021-05-26] MEDS: ondansetron 2 mg/ML SDV 2 mL 4 MG IVP ×2 (02:28→10:29)
[2021-05-26] MEDS: alum-mag-hydroxide-sime 30 mL UDC PO (02:37)
[2021-05-26] MEDS: oxytocin 30 UNIT/500 ML BAG IV (10:32)
[2021-05-26] MEDS: metoclopramide 5 mg/mL SDV 2 mL 10 MG IV (10:44)
[2021-05-26] MEDS: dextrose 5%-lactated ringers 1,000 ML 125 ML IV (12:15)
--- NOTE | 2021-05-26 14:48 | PM.DELIVERY ---
Delivery Note: Date of delivery: May 26, 2021 Op report anesthesia: Epidural Estimated blood loss (mL): 100 Pre-Delivery Course: The patient is a 26-year-old one at 37 weeks who presented to the hospital in active labor. Her GBS status was initially unknown. Her blood type is A-. Otherwise her labs are within normal limits. As result she was started on GBS protocol. She continued to progress very slowly at first. Later GBS status was resulted and found to be negative. Her cervical dilation also stalled. As result she was placed on Pitocin to augment her labor. Her membranes ruptured during a cervical exam 5 to 6 hours prior to delivery. Delivery: DELIVERY: The patient progressed to complete without difficulty. She delivered a male with a weight of 6 pounds 9 ounces with Apgars of seven, nine. The baby was delivered from the YOUNG position. The baby's mouth and nose were suctioned at the site of the perineum. The baby was then completely delivered and placed on the mother's abdomen. The cord was then clamped and cut. There was no nuchal cord. There was no meconium. The placenta and 3 vessel cord were delivered intact shortly thereafter. The perineum and vaginal vault were carefully examined. A second-degree posterior midline laceration was noted. It was repaired with 3-0 Vicryl in the usual fashion. The laceration was easily reapproximated. Both the mother and the baby were in stable condition. Post-Delivery Status: Good A&P Assessment and plan (1) 37 weeks gestation of : I anticipate routine if she does well, she should be able to be discharged home tomorrow evening. Status: Acute (2) Spontaneous vaginal delivery: Status: Acute Coding Level of Care Code Acute Heel Boom Operator for Chg Fwd Diagnoses 37 weeks gestation of Z3A.37 Spontaneous vaginal delivery O80
[2021-05-26] MEDS: ibuprofen 800 mg tablet PO (20:13)
[2021-05-27] VITALS (11 sets, daily range): BP systolic 114–132; BP diastolic 64–78; PULSE 54–65; RESP 16–17; TEMP 36.4–36.6; O2SAT 99
[2021-05-27 00:18] LABS: Hematocrit 30.4 % (37.0-47.0); Hemoglobin 9.5 g/dL (11.5-15.3); Mean Corpuscular HGB Conc 31.3 g/dL (30.0-36.0); Mean Corpuscular Hemoglobin 24.5 pg (28.0-34.0); Mean Corpuscular Volume 78.4 fL (81-99); Mean Platelet Volume 11.1 fL (7.4-10.4); Platelet Count 258 10^3/cmm (130-400); Red Blood Count 3.88 10^6/uL (4.1-5.3); Red Cell Distribution Width 14.4 % (12.1-15.1); White Blood Count 19.4 10^3/uL (4.0-10.0)
--- NOTE | 2021-05-27 09:01 | PM.OBGYDC ---
Discharge Providers TRANSPORTATION ASSISTANT Date of Admission: 05/25/21 22:55 Date of Discharge: 05/27/21 Attending Provider at Admission: Larry Mtz MD Attending Provider at Discharge: Larry Mtz MD Primary Care Provider: Larry Mtz MD Diagnoses at Discharge Discharge Diagnosis (1) 37 weeks gestation of : Status: Acute (2) Spontaneous vaginal delivery: Status: Acute Reason for Visit Reason for Visit: Contractions Hospital Course Hospital Course The patient presented to the hospital in active labor. She was placed on GBS protocol due to being GBS status unknown. She had rupture of membranes about 6 hours prior to delivery. She pushed for less than 30 minutes and had an unremarkable delivery of a healthy-appearing 37-week infant. She had a second-degree posterior midline tear which was repaired without difficulty. Her course was also unremarkable. Her bleeding was within normal limits. Her pain was well controlled. She breast-fed with a nipple shield. Information Peripartum Data: Infant Delivery Method: Vaginal Physical Exam Narrative: EXAM NARRATIVE: The patient is alert. She appears comfortable. Her heart has a regular rate and rhythm with no murmurs appreciated. Lungs are clear to auscultation bilaterally. Her fundus is firm and below the umbilicus. Urinary Catheter Management^: Park: Cath Placed During This Visit: yes, but has since been removed by the nurse Reason for Continuing Indwelling Catheter: Decision to DC Catheter Urinary Catheter Date of Insertion: 05/26/21 Urinary Catheter Time of Insertion: 02:55 Date Urinary Catheter Removed: 05/26/21 Time Urinary Catheter Discontinued: 14:15 Discharge Data Data Completed and Pending: Pending at discharge Category Date Time Status Antibody Identifi cation Routine Lab 05/25/21 23:20 Results Complete Crossmat ch Routine Lab 05/26/21 19:14 Results Rho D Immune Glob ulin Routine Lab 05/26/21 19:14 Results Type and Screen R outine Lab 05/26/21 19:14 Results Labs from last 24 hours 05/27/21 05/27/21 05/25/21 00:00 00:00 23:20 WBC 19.4 H RBC 3.88 L Hgb 9.5 L Hct 30.4 L MCV 78.4 L MCH 24.5 L MCHC 31.3 RDW 14.4 Plt Count 258 MPV 11.1 H Blood Type A Negative Rho(D) Type Negative / 0 Antibody Screen Positive Antibody Identific ation Anti-D Screen Negative Vitals: Last Vital Signs Temp 98.1 F 05/26/21 23:46 Pulse 56 L 05/27/21 04:27 Resp 17 05/27/21 07:00 BP 114/64 05/27/21 04:27 Pulse Ox 91 05/26/21 02:14 Discharge Plan Discharge Patient Disposition: Home Condition: Stable Prescriptions: New ibuprofen 800 mg Tablet 800 mg PO TID Qty: 45 RF: 0 -U 106.5-1 mg Capsule 1 cap PO DAILY Qty: 90 RF: 1 Continued sertraline [Zoloft] 100 mg tablet 100 mg PO DAILY Qty: 30 RF: 2 Discontinued metoclopramide HCl [Reglan] 10 mg tablet 10 mg PO Q6H PRN (Reason: nausea and vomiting) Qty: 20 RF: 0 Discharge Orders: Discharge Order (Routine); Ordered 05/27/21 Ordered By: Larry Mtz Referrals: Larry Mtz MD [Primary Care Provider] - 6 Weeks (Call friday morning to schedule your 6 week visit. ) Discharge Diet: Usual diet Discharge Activity: Limit activity as instructed Patient Instructions: Vitamins (By mouth), Depression (GEN), Pre-eclampsia and Eclampsia (DC), Bleeding (DC), OB Discharge Report, OB Food/Drug Interaction Guide, OB Care at Home, Opioid Safety, OB Proud Parent Packet, OB Vaginal Deliveries Discharge Attestations TRANSPORTATION ASSISTANT Time Spent in Discharge Care*: less than 30 min Specific Discharge Activities: Specific discharge activities: educating patient and educating and/or supporting family/caregiver Coding Level of Care Code Acute Motor Vehicle Parts Interpreter for Chg Fwd Diagnoses 37 weeks gestation of Z3A.37 Spontaneous vaginal delivery O80
[2021-05-27] MEDS: docusate sodium 100 mg Capsule PO (09:31)
[2021-05-27] MEDS: prenatal vitamin Capsule 1 CAP PO (09:31)
[2021-05-27] MEDS: ibuprofen 800 mg tablet PO ×2 (09:31→15:41)
[2021-05-27] MEDS: sertraline 100 mg Tablet PO (10:15)
== END 2021-05-27 16:15 | disposition home or self-care (01) | DRG 807 ==
PROVIDERS: Admitting Provider Family Medicine; PCP Family Medicine; Visit Provider Family Medicine
DX: O99.344 Other mental disorders complicating childbirth (principal); Z37.0 Single live birth; F41.9 Anxiety disorder, unspecified; F32.9 Major depressive disorder, single episode, unspecified; F43.10 Post-traumatic stress disorder, unspecified; O70.1 Second degree perineal laceration during delivery; Z3A.37 37 weeks gestation of pregnancy
CPT/HCPCS: 12345; 36415; 36430; 51702; 59025; 59409; 80500; 85025; 85027; 85460; 86850; 86870; 86900; 90384; 96374; 96375; 99211; J0290; J2405; J2765; J2795

== ENCOUNTER 2022-10-16 20:38 | Emergency (ER) | payer MEDICAID, SELFPAY ==
[2022-10-16 21:04] VITALS: BP 140/78; PULSE 119; RESP 16; TEMP 37.2; O2SAT 98; BMI 37.8
--- NOTE | 2022-10-16 21:24 | W.ED.EYEPROB ---
HPI - Eye Problem General: Chief complaint: Eye Problems Stated complaint: left eye pain, recently dx with pink eye Time Seen by Provider: 10/16/22 21:12 History of Present Illness: 27-year-old female comes in today with complaints of redness around the left eye. Patient was started on antibiotic ointment for conjunctivitis from Friday. Patient appears nontoxic. Patient reports irritation to the skin but not no pain to the eye itself. Patient is alert and oriented. Patient does have a lot of sinus drainage and pressure. Associated symptoms: Denies fever(s) Review of Systems Const: Denies: fever(s) Eyes: Reports: eye discharge and eye redness ENMT: Reports: nasal discharge and nasal congestion PFSH ED PFSH: Social History Smoking and tobacco status: never smoked Second hand smoke exposure: No Smoking risk assessment/counseling performed?: No Female Reproductive History: Date of last menstrual period: 10/01/22 Physical Exam Const: COMMON NORMALS: alert HENMT: FACE & SINUS: sinus tenderness and Facial tenderness on exam of face and sinuses NOSE: Nasal discharge present MOUTH: Normal oral and palatal mucosa present Eye: PERIORBITAL: periorbital findings abnormal positive left periorbital erythema EYELID: eyelid abnormality (Swelling left) Resp: COMMON NORMALS: normal respiratory effort and clear to auscultation bilaterally AUSCULTATION: clear to auscultation bilaterally Cardio: COMMON NORMALS: regular rate and regular rhythm RATE: regular rate RHYTHM: regular rhythm Extremity: COMMON NORMALS: normal to inspection Neuro: SENSORIUM/ORIENTATION: Yes alert Skin: COMMON NORMALS: turgor normal GENERAL SKIN EXAM: turgor normal Course Vital Signs: Vital signs: Vital Signs Temperature 99.0 F 10/16/22 21:04 Pulse Rate 119 H 10/16/22 21:04 Respiratory Rate 16 10/16/22 21:04 Blood Pressure 140/78 10/16/22 21:04 Pulse Oximetry 98 10/16/22 21:04 Oxygen Delivery Me thod 10/16/22 21:04 MDM - Eye Problem Medical Decision Making 27-year-old female comes in today with complaints of swelling and redness around the left eye. Patient was started on antibiotic ointment on Friday for the treatment of possible conjunctivitis. On exam today patient reported increasing redness and swelling to the area around the eye. Patient reports no pain with movement of the eye. Pupils are equal and reactive. EOMs are intact. Patient reports no fever. Patient does report sinus tenderness and significant nasal drainage and congestion. Differential diagnosis includes rhinosinusitis, preseptal cellulitis, orbital cellulitis, upper respiratory infection. Patient was started on Maxitrol eyedrops 1 drop 4 times a day while awake to both eyes for the next 7 days. Patient was also put on oral antibiotics for the periorbital/preseptal cellulitis. No signs of orbital cellulitis were noted at this time. Recommend follow-up or return for worsening symptoms. Patient stated understanding. Discharge Plan Discharge Patient Disposition: Home Clinical Impression: Periorbital cellulitis, Acute bacterial rhinosinusitis Condition: Stable Prescriptions: New cefdinir 300 mg capsule 300 mg PO BID Qty: 14 0RF No Action sertraline [Zoloft] 100 mg tablet 100 mg PO DAILY Qty: 30 2RF erythromycin 5 mg/gram (0.5 %) ointment 1 applic ophthalmic (eye) QID 7 Days Qty: 3.5 0RF ibuprofen 800 mg Tablet 800 mg PO TID Qty: 45 0RF -U 106.5-1 mg Capsule 1 cap PO DAILY Qty: 90 1RF Discharge Orders: Discharge ED (Routine); Ordered 10/16/22 Ordered By: Leo Monroy Referrals: Larry Mtz MD [Primary Care Provider] - Discharge Diet: Usual diet Discharge Activity: Increase activity as tolerated Patient Instructions: Periorbital Cellulitis (ED) Activity Restrictions/Additional Instructions: Take antibiotic 1 capsule 2 times a day for 7 days. Continue with eyedrops 1 drop 4 times a day while awake for the next 7 days. Drink plenty of fluids. Follow-up with primary care. Coding Level of Care Code ED Scaling Machine Operator for Obey Carvajal
[2022-10-16] MEDS: cefTRIAXone 1,000 MG in lidocaine 1% 2.1 ML 0.01 MG IM (21:36)
[2022-10-16] MEDS: neomycin-poly-dex Op 5 mL Btl 2 DROP EYE-BOTH (21:47)
== END 2022-10-16 21:50 | disposition home or self-care (01) ==
PROVIDERS: Emergency Provider Nurse Practitioner Family; PCP Family Medicine
DX: L03.213 Periorbital cellulitis (principal); J01.80 Other acute sinusitis
CPT/HCPCS: 96372; 99284; J0696

== ENCOUNTER 2023-05-02 09:28 | Outpatient (RCR) | payer MEDICAID, SELFPAY | END 2023-05-29 23:59 | disposition home or self-care (01) | LOC: SPT 09:28 | PROVIDERS: PCP Family Medicine; Visit Provider Physician Assistant | DX: M54.50 Low back pain, unspecified (principal); G89.29 Other chronic pain | CPT/HCPCS: 97161 ==

== ENCOUNTER 2024-02-25 11:41 | Emergency (ER) | payer MEDICAID, SELFPAY ==
[2024-02-25 11:44] VITALS: BP 137/83; PULSE 76; RESP 16; TEMP 36.9; O2SAT 100
[2024-02-25 12:17] VITALS: BP 111/73; PULSE 75; RESP 18; O2SAT 100
[2024-02-25 12:19] LABS: Basophils # 0.1 10^3/uL (0.0-0.1); Basophils % 0.5 %; Eosinophils # 0.1 10^3/uL (0.0-0.8); Eosinophils % 1.2 %; Hematocrit 37.8 % (36-47); Lymphocytes # 2.7 10^3/uL (0.8-4.8); Lymphocytes % 29.1 %; Mean Corpuscular HGB Conc 31.2 g/dL (30-55); Mean Corpuscular Hemoglobin 23.7 pg (27-33); Mean Corpuscular Volume 75.9 fl (85-98); Mean Platelet Volume 10.2 fL (7.4-10.4); Monocytes # 0.4 10^3/uL (0.2-0.9); Neutrophils # 5.94 10^3/uL (1.8-7.7); Nucleated Red Blood Cells % 0 %; Platelet Count 309 10^3/cmm (157-399); Red Blood Count 4.98 10^6/uL (3.85-5.65); Red Cell Distribution Width 17.1 % (12.1-15.1); White Blood Count 9.15 10^3/uL (3.29-11.43)
--- NOTE | 2024-02-25 12:43 | US_ITS ---
WS: [id number] ULTRASOUND EARLY TECHNIQUE: Transabdominal sonography of the pelvis was performed. Followed by transvaginal sonography to better evaluate the uterus and ovaries. CLINICAL INFORMATION: vaginal bleeding LMP: 01/10/2024 Beta hCG: Unknown. COMPARISON: None. FINDINGS: Cervix is long and closed. UTERUS AND GESTATIONAL SAC Intrauterine gestations: Single intrauterine gestation with visualized gestational sac. pole and yolk sac visualized. Ca rdiac activity visualized. Estimated gestational age: 6w1d Yolk sac: 0.3 cm. [place] rump length (CRL): 0.4 cm. heart motion: 97 BPM. Subchorionic hemorrhage: None. OVARIES Right ovary: Normal. Left ovary: Normal. FREE FLUID Present IMPRESSION: 1. Single live intrauterine with visualized cardiac activity. 2. Cervix is long and closed. 3. Normal ovaries. 4. Small moderate free fluid in the cul-de-sac. 5. Estimated gestational age; 6w1d
--- NOTE | 2024-02-25 12:43 | ED_ITS ---
HPI - 2 General: Chief complaint: Vaginal Bleeding Stated complaint: 6 weeks preg with bleeding Time Seen by Provider: 02/25/24 11:56 Source: patient Mode of arrival: ambulatory History of Present Illness: 28-year-old G2, P1 [facility] with vaginal bleeding for the last few days. Intermittent to increasing little bit today she has some mild cramping no dysuria urgency or frequency MD Complaint: vaginal bleeding Onset (ago): day(s) Date of Last Menstrual Period: 01/10/24 Associated symptoms: Deny abdominal pain or dysuria Review of Systems 2 Const: Denies: fever(s) or chills Card: Denies: chest pain Resp: Denies: dyspnea GI: Denies: abdominal pain : Denies: dysuria, urinary frequency or urinary urgency Musc: Denies: neck pain or back pain Skin/Breast: Denies: rash PFSH ED 2 PFSH: Social History Smoking and tobacco/nicotine status: never used tobacco/nicotine Second hand smoke exposure: No Female Reproductive History: Date of last menstrual period: 01/10/24 Physical Exam 2 Const: COMMON NORMALS: no acute distress GENERAL APPEARANCE: cooperative and comfortable ORIENTATION/CONSCIOUSNESS: Yes awake, Yes oriented to person, Yes oriented to place and Yes oriented to time HENMT: COMMON NORMALS: normocephalic, atraumatic and hearing grossly normal bilaterally HEAD & SCALP: normocephalic and atraumatic Resp: COMMON NORMALS: normal respiratory effort, No retractions, No use of accessory muscles and clear to auscultation bilaterally AUSCULTATION: clear to auscultation bilaterally Cardio: COMMON NORMALS: regular rate, regular rhythm and No murmurs present (Cardio) RATE: regular rate RHYTHM: regular rhythm GI: COMMON NORMALS: Soft to palpation and No hepatosplenomegaly present A USCULTATION: Yes normoactive bowel sounds PALPATION: Yes Soft to palpation, No Tenderness to palpation present (GI), No Guarding due to palpation present (GI) and Yes No hepatosplenomegaly present Extremity: COMMON NORMALS: normal to inspection, capillary refill normal, no clubbing, cyanosis or edema, no calf tenderness and no pedal edema Neuro: SENSORIUM/ORIENTATION: Yes oriented to person, Yes oriented to place and Yes oriented to time Skin: COMMON NORMALS: no rashes or lesions noted GENERAL SKIN EXAM: no rashes or lesions noted Course 2 Vital Signs: Vital signs: Vital Signs Temperature 98.5 F 02/25/24 11:44 Pulse Rate 75 02/25/24 12:17 Respiratory Rate 18 02/25/24 12:17 Blood Pressure 111/73 02/25/24 12:17 Pulse Oximetry 100 02/25/24 12:17 Oxygen Delivery Me thod Room Air 02/25/24 12:17 MDM - OB/Uterine Contractions Medical Decision Making Vaginal bleeding in first trimester ultrasound confirms 6-week 1 day within the uterus. Supportive cares recheck beta-hCG within the next 3 to 5 days. Medical Records I reviewed the patient's medical records. Lab Data I reviewed the patient's lab results. 02/25/24 12:05 Laboratory Results WBC 9.15 10^3/uL (3.29-11.43) 02/25/24 12:05 RBC 4.98 10^6/uL (3.85-5.65) 02/25/24 12:05 Hgb 11.80 g/dL (11.27-16.99) 02/25/24 12:05 Hct 37.8 % (36-47) 02/25/24 12:05 MCV 75.9 fl (85-98) L 02/25/24 12:05 MCH 23.7 pg (27-33) L 02/25/24 12:05 MCHC 31.2 g/dL (30-55) 02/25/24 12:05 RDW 17.1 % (12.1-15.1) H 02/25/24 12:05 Plt Count 309 10^3/cmm (157-399) 02/25/24 12:05 MPV 10.2 fL (7.4-10.4) 02/25/24 12:05 Neut % (Auto) 65.0 % 02/25/24 12:05 Lymph % (Auto) 29.1 % 02/25/24 12:05 [place] % (Auto) 4.0 % 02/25/24 12:05 Eos % (Auto) 1.2 % 02/25/24 12:05 Baso % (Auto) 0.5 % 02/25/24 12:05 Neut # (Auto) 5.94 10^3/uL (1.8-7.7) 02/25/24 12:05 Lymph # (Auto) 2.7 10^3/uL (0.8-4.8) 02/25/24 12:05 [place]w # (Auto) 0.4 10^3/uL (0.2-0.9) 02/25/24 12:05 Eos # (Auto) 0.1 10^3/uL (0.0-0.8) 02/25/24 12:05 Baso # (Auto) 0.1 10^3/uL (0.0-0.1) 02/25/24 12:05 Nucleated RBC % (auto) 0 % 02/25/24 12:05 Nucleated RBCs # 0.0 /100WBC 02/25/24 12:05 Ser , Semi-Qnt 1522.00 mIU/mL 02/25/24 12:05 Urine Color Yellow (Yellow) 02/25/24 12:13 Urine Appearance Clear (CLEAR) 02/25/24 12:13 Urine pH 5 (5-7) 02/25/24 12:13 Ur Specific [place] 1.020 (1.005-1.030) 02/25/24 12:13 Urine Protein Neg (Negative) 02/25/24 12:13 Urine Glucose (UA) Norm (Normal) 02/25/24 12:13 Urine Ketones 1+ (Negative) H 02/25/24 12:13 Urine Blood 3+ (Negative) H 02/25/24 12:13 Urine Nitrate Negative (Negative) 02/25/24 12:13 Urine Bilirubin Neg (Negative) 02/25/24 12:13 Urine Urobilinogen 1 mg/dL (Negative) H 02/25/24 12:13 Ur Leukocyte Esterase Trace (Negative) H 02/25/24 12:13 Urine RBC 40-50 /hpf (0-2) H 02/25/24 12:13 Urine WBC 0-4 /hpf (0-5) H 02/25/24 12:13 Ur Squamous Epith Cells 0-4 /hpf (0-5) H 02/25/24 12:13 Amorphous Sediment Not Reportable 02/25/24 12:13 Urine Bacteria Trace /hpf (NONE) 02/25/24 12:13 Urine Mucus Trace /hpf 02/25/24 12:13 Urine Yeast Trace /hpf 02/25/24 12:13 Rho(D) Type Rh negative 02/25/24 12:05 All radiology interpretation(s) finalized by discharge Discharge Plan Discharge Patient Disposition: Home Clinical Impression: Vaginal bleeding in patient after first trimester Condition: Stable Prescriptions: No Action Multivitamins 28 mg iron- 800 mcg Tablet 1 tab PO QAM Discharge Orders: Discharge ED (Routine); Ordered 02/25/24 Ordered By: Sanya Blanca Referrals: Larry Mtz MD [Primary Care Provider] - Discharge Diet: Usual diet Discharge Activity: Resume usual activity Patient Instructions: Opioid Safety, Pain Management Activity Restrictions/Additional Instructions: Thank you for choosing [facility] for your healthcare needs today. Please realize this is an emergency room and that we are providing you with a medical screening exam and this may not be complete and all inclusive of all the testing and or work up that you may need to determine your ailment or severity of your illness. It is very important that you follow up as instructed or that you return to the Emergency Department should you have concerns or if your condition changes or worsens in any way. You were seen today with vaginal bleeding during first trimester. Ultrasound does not show any significant abnormalities confirm at 6 weeks and 1 day. Suspect you have what is called an implantation bleed you may intermittently continue to have some bleeding over the next few days. You should have a beta-hCG rechecked in 3 to 5 days with your primary care doctor. If bleeding becomes excessive return to the emergency room Coding Level of Care Code ED Transmission And Protection Engineer for Obey Carvajal
[2024-02-25 12:44] LABS: Add Urine Microscopic? YES; Bilirubin Urine Neg (Negative); Blood Urine 3+ (Negative); Glucose Urine UA Norm (Normal); Ketones Urine 1+ (Negative); Leukocyte Esterase Urine Trace (Negative); Nitrate Urine Negative (Negative); Protein Urine Neg (Negative); Urine Appearance Clear (CLEAR); Urine Color Yellow (Yellow); Urobilinogen Urine 1 mg/dL (Negative); pH Urine 5 (5-7)
[2024-02-25 12:45] LABS: Bacteria Urine TRACE /hpf; Mucus Urine TRACE /hpf; RBC Urine 40-50 /hpf (0-2); Squamous Epithelial Cell Urine 0-4 /hpf (0-5); WBC Urine 0-4 /hpf (0-5)
[2024-02-25 12:46] LABS: Add Urine Culture? Yes
== END 2024-02-25 14:49 | disposition home or self-care (01) ==
PROVIDERS: Emergency Provider Family Medicine; PCP Family Medicine
DX: O20.9 Hemorrhage in early pregnancy, unspecified (principal); Z3A.01 Less than 8 weeks gestation of pregnancy
CPT/HCPCS: 76817; 81001; 84702; 85025; 87086; 87106; 99284

== ENCOUNTER 2024-02-27 15:18 | Emergency (ER) | payer MEDICAID, SELFPAY ==
[2024-02-27 15:21] VITALS: BP 147/78; PULSE 119; RESP 18; TEMP 36.7; O2SAT 99
--- NOTE | 2024-02-27 15:41 | W.ED.FEMALGU ---
HPI - Female Genitourinary General: Chief complaint: Vaginal Bleeding Stated complaint: 6 week preg w/ vaginal bleeding Time Seen by Provider: 02/27/24 15:21 Source: patient Mode of arrival: ambulatory Limitations: no limitations History of Present Illness: Patient is a female here for evaluation of continued vaginal bleeding. She was seen 2 days ago for the complaint of vaginal bleeding. She was found to have a 6w1d live intrauterine . hCG was roughly 1500 at that time. States since that visit bleeding has continued and now passing small clots which concerned her thus prompting her return visit. She states she also passed a chunk of tissue and is concerned for a miscarriage. MD elicited complaint: vaginal bleeding and possible miscarriage Onset (ago): day(s) Severity: moderate Quality of pain: cramping Consistency: intermittent Vaginal discharge: none Vaginal bleeding: moderate and clots Exacerbating factors: none Relieving factors: none Associated symptoms: Reports no associated symptoms; Deny nausea Treatment prior to arrival: none Sexual activity: Yes Patient : Yes Date of Last Menstrual Period: 01/10/24 Review of Systems Const: Denies: fever(s) Card: Denies: chest pain Resp: Denies: dyspnea GI: Denies: nausea, vomiting or change in bowel habits : Reports: vaginal bleeding and pelvic pain (cramping); Denies: flank pain, difficulty voiding, dysuria, urinary frequency, urinary urgency or urinary hesitancy Musc: Denies: back pain Neuro: Denies: dizziness [facility] ED PFSH: Social History Smoking and tobacco/nicotine status: never used tobacco/nicotine Second hand smoke exposure: No Female Reproductive History: Date of last menstrual period: 01/10/24 Physical Exam Const: COMMON NORMALS: no acute distress, patient oriented x3, no limitations, alert and well nourished ORIENTATION/CONSCIOUSNESS: Yes awake, Yes oriented to person, Yes oriented to place and Yes oriented to time Resp: COMMON NORMALS: normal respiratory effort and clear to auscultation bilaterally AUSCULTATION: clear to auscultation bilaterally Cardio: COMMON NORMALS: regular rhythm RATE: tachycardic RHYTHM: regular rhythm GI: COMMON NORMALS: Normal to inspection, nondistended, normoactive bowel sounds present, Soft to palpation, non-tender, No hepatosplenomegaly present and no masses PALPATION: Yes Soft to palpation and Yes No hepatosplenomegaly present : COMMON NORMALS: Yes no CVA tenderness BLADDER/KIDNEY EXAM: Yes no CVA tenderness SPECULUM EXAM - CERVIX: Yes Other cervical findings present (mild bleeding from cervix; no POC or clots noted) Back/Pelvis: COMMON NORMALS: no CVA tenderness Extremity: GENERAL: Yes normal exam except as noted Neuro: [place] COMA SCALE: document GCS findings Reading coma scale eye opening: Spontaneous Reading coma scale verbal response: Orientated Reading coma scale motor response: Obey commands [place] coma scale total score: 15 COMMON NORMALS: patient oriented x3 SENSORIUM/ORIENTATION: Yes alert, Yes oriented to person, Yes oriented to place and Yes oriented to time Skin: COMMON NORMALS: no rashes or lesions noted GENERAL SKIN EXAM: no rashes or lesions noted Course Vital Signs: Vital signs: Vital Signs Temperature 98.1 F 02/27/24 15:21 Pulse Rate 119 H 02/27/24 15:21 Respiratory Rate 18 02/27/24 15:21 Blood Pressure 147/78 02/27/24 15:21 Pulse Oximetry 99 02/27/24 15:21 Oxygen Delivery Me thod Room Air 02/27/24 15:21 MDM - Female Medical Decision Making Patient here with continued vaginal bleeding and now passing clots what sounds to be POC. Her hCG 2 days ago was 1522. Today, unfortunately, it is 1047. Counselled patient on how she is most likely experiencing a miscarriage and instructed her to follow up with primary care so they can continue to trend hcgs down. Return to ED precautions given. Medical Records I reviewed the patient's medical records. Lab Data I reviewed the patient's lab results. 02/27/24 16:03 Laboratory Results WBC 11.74 10^3/uL (3.29-11.43) H 02/27/24 16:03 RBC 4.76 10^6/uL (3.85-5.65) 02/27/24 16:03 Hgb 11.20 g/dL (11.27-16.99) L 02/27/24 16:03 Hct 36.5 % (36-47) 02/27/24 16:03 MCV 76.7 fl (85-98) L 02/27/24 16:03 MCH 23.5 pg (27-33) L 02/27/24 16:03 MCHC 30.7 g/dL (30-55) 02/27/24 16:03 RDW 17.0 % (12.1-15.1) H 02/27/24 16:03 Plt Count 301 10^3/cmm (157-399) 02/27/24 16:03 MPV 10.0 fL (7.4-10.4) 02/27/24 16:03 Neut % (Auto) 63.9 % 02/27/24 16:03 Lymph % (Auto) 28.3 % 02/27/24 16:03 [place] % (Auto) 4.9 % 02/27/24 16:03 Eos % (Auto) 2.1 % 02/27/24 16:03 Baso % (Auto) 0.5 % 02/27/24 16:03 Neut # (Auto) 7.50 10^3/uL (1.8-7.7) 02/27/24 16:03 Lymph # (Auto) 3.3 10^3/uL (0.8-4.8) 02/27/24 16:03 [place] # (Auto) 0.6 10^3/uL (0.2-0.9) 02/27/24 16:03 Eos # (Auto) 0.3 10^3/uL (0.0-0.8) 02/27/24 16:03 Baso # (Auto) 0.1 10^3/uL (0.0-0.1) 02/27/24 16:03 Nucleated RBC % (auto) 0 % 02/27/24 16:03 Nucleated RBCs # 0.0 /100WBC 02/27/24 16:03 Ser , Semi-Qnt 1047.00 mIU/mL 02/27/24 16:03 No radiology studies performed this visit Discharge Plan Discharge Patient Disposition: Home Clinical Impression: Miscarriage Condition: Stable Prescriptions: No Action PNV cmb#95-ferrous fumarate-FA [ Multivitamins] 28 mg iron- 800 mcg Tablet 1 tab PO QAM Discharge Orders: Discharge ED (Routine); Ordered 02/27/24 Ordered By: Misti Olivera Referrals: Larry Mtz MD [Primary Care Provider] - Activity Restrictions/Additional Instructions: As we discussed unfortunately your hCG declined on today's visit. This coupled with your worsening bleeding and passing of clots most likely is consistent with a miscarriage. Bleeding may continue to persist over the next several days/weeks. Please follow-up with your primary care provider as originally scheduled. You need to return to the emergency department for severe vaginal bleeding quantified as soaking more than 1 pad an hour for several consecutive hours. Lightheadedness/dizziness/passing out episodes, fever, severe pain, or any other concerns you may have. Coding Level of Care Code ED Spinner Hand for Obey Carvajal
[2024-02-27 16:12] LABS: Basophils # 0.1 10^3/uL (0.0-0.1); Basophils % 0.5 %; Eosinophils # 0.3 10^3/uL (0.0-0.8); Eosinophils % 2.1 %; Hematocrit 36.5 % (36-47); Lymphocytes # 3.3 10^3/uL (0.8-4.8); Lymphocytes % 28.3 %; Mean Corpuscular HGB Conc 30.7 g/dL (30-55); Mean Corpuscular Hemoglobin 23.5 pg (27-33); Mean Corpuscular Volume 76.7 fl (85-98); Monocytes # 0.6 10^3/uL (0.2-0.9); Monocytes % 4.9 %; Neutrophils % 63.9 %; Nucleated Red Blood Cells % 0 %; Platelet Count 301 10^3/cmm (157-399); Red Blood Count 4.76 10^6/uL (3.85-5.65); White Blood Count 11.74 10^3/uL (3.29-11.43)
[2024-02-27 17:00] VITALS: BP 157/88
== END 2024-02-27 17:02 | disposition home or self-care (01) ==
PROVIDERS: Emergency Provider Physician Assistant; PCP Family Medicine
DX: O03.9 Complete or unspecified spontaneous abortion without complication (principal)
CPT/HCPCS: 84702; 85025; 99283

== ENCOUNTER → 2024-06-20 12:26 | Outpatient (BNVA) | payer MEDICAID, SELFPAY | PROVIDERS: PCP Family Medicine; Visit Provider Registered Nurse Neonatal Intensive Care | DX: R39.15 Urgency of urination (principal); N39.0 Urinary tract infection, site not specified; R39.9 Unspecified symptoms and signs involving the genitourinary system | CPT/HCPCS: 81000; 87086 ==

== ENCOUNTER 2024-09-24 10:20 | Oncology outpatient (recurring) (ONCR) | payer MEDICAID, SELFPAY ==
[2024-09-24] MEDS: rho(d) immune globulin 1,500 unit Syringe 1500 UNIT IM (10:41)
--- NOTE | 2024-09-24 10:44 | PC.NURSE ---
Pts orders and verification of RH status verified by Yue Noland RN prior to administration.
== END 2024-09-30 23:59 | disposition home or self-care (01) ==
LOC: ONCMED 10:20
PROVIDERS: PCP Family Medicine; Visit Provider Family Medicine
DX: Z79.899 Other long term (current) drug therapy (principal); O26.893 Other specified pregnancy related conditions, third trimester; Z67.91 Unspecified blood type, Rh negative
CPT/HCPCS: 96372; J2790

== ENCOUNTER 2024-12-04 07:38 | Inpatient (IN) | payer MEDICAID, SELFPAY ==
[2024-12-04] VITALS (40 sets, daily range): BP systolic 96–139; BP diastolic 49–77; PULSE 56–91; RESP 16–18; TEMP 36.7–36.9; O2SAT 92–100; BMI 40.5
[2024-12-04] MEDS: lactated ringers 1,000 ML 999 ML IV ×2 (08:25→09:09)
[2024-12-04 08:41] LABS: Basophils # 0.1 10^3/uL (0.0-0.1); Basophils % 0.5 %; Eosinophils # 0.2 10^3/uL (0.0-0.8); Eosinophils % 1.1 %; Hematocrit 31.8 % (36-47); Lymphocytes # 2.8 10^3/uL (0.8-4.8); Lymphocytes % 19.1 %; Mean Corpuscular HGB Conc 30.8 g/dL (30-55); Mean Corpuscular Hemoglobin 22.3 pg (27-33); Mean Corpuscular Volume 72.3 fl (85-98); Monocytes # 0.7 10^3/uL (0.2-0.9); Monocytes % 4.4 %; Neutrophils % 74.1 %; Nucleated Red Blood Cells % 0 %; Platelet Count 311 10^3/cmm (157-399); Red Cell Distribution Width 16.9 % (12.1-15.1); White Blood Count 14.71 10^3/uL (3.29-11.43)
[2024-12-04] MEDS: ROPivacaine syringe 100 MG/50 ML SYRINGE 13 MG EPIDURAL (09:09)
--- NOTE | 2024-12-04 09:22 | ANES.PROC ---
Anesthesia Procedures Procedure/Date: 12/04/24 Epidural: Time Out Performed: Yes Consents Signed: Procedure Consent Consent: requested by attending/covering physician and from patient Lumbar Level: L2-L3 Epidural position: sitting Epidural procedure: sterile prep of area, 1% lidocaine to numb the area, 18 g needle, neg for paresthesia, test dose given, 1.5% xylocaine 1:200k epi (5cc), 0.2% Ropivacaine bolus ml (4cc and Fentanyl 100mcg), placed PCEA, no systemic response, sterile dressing applied, L.U.D. no apparent complications and 0.2% Ropiavacaine @ mls/hr (13cc/hour) Additional Comments: Pt tolerated well
--- NOTE | 2024-12-04 09:24 | P.ANESASSM_ITS ---
Pre-Anesthetic Assessment Height/Weight: Height 1.6 m Weight 103.873 kg Pulse BP Pulse Ox O2 Del Method 72 121/69 92 Room Air 12/04/24 09:22 12/04/24 09:22 12/04/24 09:20 12/04/24 07:30 Preop Diagnosis: Labor pain JEREMIE Was Beta Barbi taken within 24 hours: N/A Was Clonidine taken within 24 hours: N/A Social No alcohol and No tobacco Exam alert, oriented x 3, clear to auscultation bilaterally and regular rate & rhythm Airway Submandibular: within normal limits Cervical ROM: within normal limits Mallampati: Class II Dentition: full History/ROS No significant history except as noted and No significant complaints Pulmonary None reported CV/HEM None reported None reported Hepatic None reported GI Gastroesophageal Reflux Disease Metabolic Morbid Obesity [facility] [place] None reported Neuropsych None reported Anesthetic Plan ASA status: 2 Anesthesia: Anesthesia Evaluation and Regional (specify below) Other: JEREMIE Risk of > 500 ml blood loss (7ml/kg in children): No Medications/Allergies Home Medications Medication Instructions Recorded Confirmed Last Taken Type vit no.95-ferrous 1 tab PO QAM 02/25/24 06/20/24 02/26/24 History fumarate 28 mg-folic acid 800 mcg tablet ( Multivitamins) promethazine 25 mg tablet mg PO 06/20/24 06/20/24 Unknown History Allergies Allergy/AdvReac Type Severity Reaction Status Date / Time acetaminophen [From Vicodin] Allergy Intermediate ADR-Vomitin Verified 06/20/24 12:15 g hydrocodone [From Vicodin] Allergy Intermediate ADR-Vomitin Verified 06/20/24 12:15 g Current Medications Generic Name Dose Route Start Last Admin Trade Name Freq PRN Reason Stop Dose Admin Lactated Ringer's 1,000 mls @ 999 mls/hr 12/04/24 07:55 12/04/24 09:09 Lactated Ringers IV 999 mls/hr .Q1H1M PRN Administration BLEEDING Ropivacaine 100 mg in 50 mls @ 13 mls/hr 12/04/24 08:00 12/04/24 09:09 Naropin Syringe EPIDURAL 13 mls/hr .Q3H51M VALERIO Administration PFSH Anesthesia Social History Smoking and tobacco/nicotine status: never used tobacco/nicotine Second hand smoke exposure: No Female Reproductive History : 3 Data Anesthesia 12/04/24 08:08 Short CBC 12/04/24 Range/Units 08:08 WBC 14.71 H (3.29-11.43) 10^3/uL Hgb 9.80 L (11.27-16.99) g/dL Hct 31.8 L (36-47) % MCV 72.3 L (85-98) fl Plt Count 311 (157-399) 10^3/cmm Neut % (Auto) 74.1 % Neut # (Auto) 10.90 H (1.8-7.7) 10^3/uL Blood Bank 12/04/24 08:08 Blood Type A Negative Rho(D) Type Rh negative Antibody Screen Negative Cardiac Studies: 2 No Data to Display
--- NOTE | 2024-12-04 09:24 | PM.OPHPUD ---
Labor & Delivery H&P Update Date of Procedure: December 04, 2024 Date H&P Performed: 12/02/24 Changes to previous documentation: Cervix is dilated to 5 and 80% effaced Admission Diagnosis: 29-year-old 3 para 1-0-1-1 with an estimated gestational age of 39 weeks presenting in active labor Planned procedure: Vaginal delivery Other information: The patient is a 29-year-old female who has had an unremarkable . She has a consistent care. There have been no problems or concerns. Her blood type is A-. She failed her 1 hour glucose screen but passed her 3-hour. She was positive for THC she is rubella immune. She is GBS negative. The remainder of her infectious disease profile is within normal limits. Related Problem List Diagnoses (1) 39 weeks gestation of : A&P Assessment and plan (1) 39 weeks gestation of : The patient is receiving an epidural. Anticipate routine labor and vaginal delivery. Status: Acute
[2024-12-04] MEDS: oxytocin 30 UNIT/500 ML BAG 600 UNIT IV (12:35)
[2024-12-04] MEDS: dextrose 5%-sod chloride 0.45% 1,000 ML 125 ML IV (12:35)
[2024-12-04] MEDS: lanolin oint 7 gm 1 APPLIC TOPICAL (15:00)
[2024-12-04] MEDS: ibuprofen 800 mg tablet PO ×2 (15:00→20:57)
--- NOTE | 2024-12-04 17:32 | PC.NURSE ---
PT UP TO BATHROOM, INSTRUCTED ON PERICARE AND THEN WE AMBULATED TO OB 12
--- NOTE | 2024-12-04 17:35 | PC.NURSE ---
PATIENT HAS NOT BEEN UP SINCE MOVING OVER TO OB 12, PATIENT ASSISTED HER UP TO BATHROOM AND DID PERICARE SHE PASSED A CLOT ABOUT THE SIZE OF AN ORANGE FLATTENED. FUNDUS FIRM BEFORE GETTING UP AND AFTER. TOLD HER THAT SHE COULD GET UP BY HERSELF BUT TO LET US KNOW IF SHE PASSES ANY MORE CLOTS WELL TRYING TO GO PEE EVEN IF SHE DOESN'T FEEL LIKE SHE NEEDS TO GO AT LEAST EVERY 2-4 HOURS. WENT OVER PP PACK WITH HER.
[2024-12-04] MEDS: docusate sodium 100 mg Capsule PO (20:57)
[2024-12-05 00:52] LABS: Hematocrit 26.1 % (36-47); Mean Corpuscular HGB Conc 30.3 g/dL (30-55); Mean Corpuscular Hemoglobin 22.4 pg (27-33); Mean Corpuscular Volume 73.9 fl (85-98); Mean Platelet Volume 10.6 fL (7.4-10.4); Platelet Count 256 10^3/cmm (157-399); Red Blood Count 3.53 10^6/uL (3.85-5.65); Red Cell Distribution Width 17.1 % (12.1-15.1); White Blood Count 18.92 10^3/uL (3.29-11.43)
[2024-12-05] MEDS: acetaminophen 325 mg Tablet 650 MG PO (06:00)
[2024-12-05 06:01] VITALS: BP 107/61; PULSE 78; RESP 15; O2SAT 97
--- NOTE | 2024-12-05 09:47 | PM.OBGYDC ---
Discharge Providers TOY DEPARTMENT MANAGER Date of Admission: 12/04/24 07:38 Date of Discharge: 12/05/24 Attending Provider at Admission: Larry Mtz MD Attending Provider at Discharge: Larry Mtz MD Primary Care Provider: Larry Mtz MD Diagnoses at Discharge Discharge Diagnosis (1) 39 weeks gestation of : Status: Acute Reason for Visit Reason for Visit: ctx Hospital Course Hospital Course The patient presented to the hospital in active labor. An epidural was placed. An amniotomy was performed. The patient then progressed to complete without difficulty. She pushed through 1 contraction and had an unremarkable delivery of a healthy appearing term . Her course was also unremarkable. Her bleeding was within normal limits. Her pain was well-controlled. With the assistance of the nurses her breast-feeding went reasonably well. Information Peripartum Data: Infant Delivery Method: Vaginal Physical Exam Narrative: The patient is alert. She appears comfortable. Her heart has a regular rate and rhythm with no murmurs appreciated. Lungs are clear to auscultation bilaterally. Her fundus is firm and below the umbilicus. Urinary Catheter Management: Park: Cath Placed During This Visit: yes Urinary Catheter Date of Insertion: 12/04/24 Urinary Catheter Time of Insertion: 09:40 Discharge Data Studies Completed and Pending Laboratory Results WBC 18.92 10^3/uL (3.29-11.43) H 12/05/24 00:00 RBC 3.53 10^6/uL (3.85-5.65) L 12/05/24 00:00 Hgb 7.90 g/dL (11.27-16.99) L 12/05/24 00:00 Hct 26.1 % (36-47) L 12/05/24 00:00 MCV 73.9 fl (85-98) L 12/05/24 00:00 MCH 22.4 pg (27-33) L 12/05/24 00:00 MCHC 30.3 g/dL (30-55) 12/05/24 00:00 RDW 17.1 % (12.1-15.1) H 12/05/24 00:00 Plt Count 256 10^3/cmm (157-399) 12/05/24 00:00 MPV 10.6 fL (7.4-10.4) H 12/05/24 00:00 Neut % (Auto) 74.1 % 12/04/24 08:08 Lymph % (Auto) 19.1 % 12/04/24 08:08 [place] % (Auto) 4.4 % 12/04/24 08:08 Eos % (Auto) 1.1 % 12/04/24 08:08 Baso % (Auto) 0.5 % 12/04/24 08:08 Neut # (Auto) 10.90 10^3/uL (1.8-7.7) H 12/04/24 08:08 Lymph # (Auto) 2.8 10^3/uL (0.8-4.8) 12/04/24 08:08 [place] # (Auto) 0.7 10^3/uL (0.2-0.9) 12/04/24 08:08 Eos # (Auto) 0.2 10^3/uL (0.0-0.8) 12/04/24 08:08 Baso # (Auto) 0.1 10^3/uL (0.0-0.1) 12/04/24 08:08 Nucleated RBC % (auto) 0 % 12/04/24 08:08 Nucleated RBCs # 0.0 /100WBC 12/04/24 08:08 Blood Type A Negative 12/04/24 08:08 Rho(D) Type Rh negative 12/04/24 08:08 Antibody Screen Negative 12/04/24 08:08 Vitals Last Vital Signs Temp 98.3 F 12/04/24 21:00 Pulse 78 12/05/24 06:01 Resp 15 12/05/24 06:01 BP 107/61 12/05/24 06:01 Pulse Ox 97 12/05/24 06:01 O2 Del Method Room Air 12/05/24 06:01 Results Labs OB ([facility]): Blood Type A Negative 12/04/24 Antibody Screen Negative 12/04/24 Hct 26.1 % (36-47) L 12/05/24 Hgb 7.90 g/dL (11.27-16.99) L 12/05/24 Rho(D) Type Rh negative 12/04/24 Plt Count 256 10^3/cmm (157-399) 12/05/24 Ser , Semi-Qnt 1047.00 mIU/mL 02/27/24 Micro Urine Specimen 06/20/24 Discharge Plan Discharge Patient Disposition: Home Condition: Stable Prescriptions: New ibuprofen 800 mg Tablet 800 mg PO TID Qty: 45 0RF Continued PNV cmb#95-ferrous fumarate-FA [ Multivitamins] 28 mg iron- 800 mcg Tablet 1 tab PO QAM Discontinued promethazine 25 mg tablet PO Discharge Orders: Discharge Order (Routine); Ordered 12/05/24 Ordered By: Larry Mtz Referrals: Larry Mtz MD [Primary Care Provider] - 6 Weeks Discharge Diet: Usual diet Discharge Activity: Limit activity as instructed Patient Instructions: Opioid Safety Discharge Attestations TOY DEPARTMENT MANAGER Time Spent in Discharge Care*: less than 30 min Coding Level of Care Code Acute Code for Chg Fwd Diagnoses 39 weeks gestation of Z3A.39
[2024-12-05] MEDS: docusate sodium 100 mg Capsule PO (09:51)
[2024-12-05] MEDS: PRENATAL VIT NO.130/IRON/FOLIC 1 EACH TABLET PO (09:51)
[2024-12-05] MEDS: ibuprofen 800 mg tablet PO (09:51)
[2024-12-05 11:00] VITALS: BP 96/61; PULSE 75; RESP 16; TEMP 36.8
[2024-12-05 12:46] VITALS: BP 114/70; PULSE 87; RESP 16; TEMP 36.6
--- NOTE | 2024-12-05 14:31 | PM.DELIVERY ---
Delivery Note: Date of delivery: December 05, 2024 Pre-delivery diagnoses: 29-year-old 3 para 1-0-1-1 at 39 weeks estimated gestational age presenting in active labor Post-delivery diagnoses: Status post spontaneous vaginal delivery Procedure: Spontaneous vaginal delivery Delivering Physician: Larry Mtz Estimated blood loss (mL): 50 Pre-Delivery Course: The patient presented to the hospital in active labor. Her cervix is 5 cm dilated. Membranes were intact. Epidural was placed. An amniotomy was performed. She progressed to complete without difficulty. Delivery: DELIVERY: The patient progressed to complete without difficulty. She delivered a female with a weight of 6 pounds 13 ounces with Apgars of 9, 10. The baby was delivered from the YOUNG position and placed on the mother's abdomen. The mouth and nose were then suctioned. The cord was then clamped and cut. There was no nuchal cord. There was no meconium. The placenta and 3 vessel cord were delivered intact shortly thereafter. The perineum and vaginal vault were carefully examined. A second-degree posterior midline laceration was noted both the mother and the baby were in stable condition. Post-Delivery Status: Good A&P Assessment and plan (1) Spontaneous vaginal delivery: (2) 39 weeks gestation of : Coding Level of Care Code Acute Code for Chg Fwd Diagnoses Spontaneous vaginal delivery O80 39 weeks gestation of Z3A.39
[2024-12-05 15:00] VITALS: BP 111/61; PULSE 61; RESP 16; TEMP 36.8; O2SAT 99
--- NOTE | 2024-12-06 12:26 | ANE.PACU2 ---
Inpatient post-anesthesia follow up: Airway intact: Yes Vital signs: Temperature 98.2 F Pulse Rate 61 Respiratory Rate 16 Blood Pressure 111/61 Pulse Oximetry 99 Oxygen Delivery Me thod Room Air Oxygen Flow Rate Fraction of Inspir ed Oxygen Hydration adequate: Yes Nausea and vomiting: No Pain level: 2 Mental status: Baseline
== END 2024-12-05 15:15 | disposition home or self-care (01) | DRG 807 ==
LOC: OPOB 07:39 → OBGYN 07:39
PROVIDERS: Admitting Provider Family Medicine; PCP Family Medicine; Visit Provider Family Medicine
DX: O70.1 Second degree perineal laceration during delivery (principal); Z37.0 Single live birth; Z3A.39 39 weeks gestation of pregnancy
CPT/HCPCS: 36415; 51702; 59025; 59409; 85025; 85027; 85460; 86850; 86900; 90384; 96374; 99211; J2590; J2795; J3010; J7120; J7799; J9999